=== PATIENT | female | born 1975 | race Hispanic/Latino ===

== ENCOUNTER → 2019-02-10 | Outpatient (CLI) | payer BC ==
[~2019-02-10] MED LIST: ASPI-1197 PO; CHOL500051 PO; CIPR-278 PO; METR500T PO; TRAM50TA4 PO
== END | disposition home or self-care (01) ==
LOC: RAH 13:14
PROVIDERS: ATTEND Nurse Practitioner Adult Health
DX: Z12.31 Encounter for screening mammogram for malignant neoplasm of breast (principal)
CPT/HCPCS: 77067

== ENCOUNTER 2024-12-23 15:18 | Inpatient (IN) | payer BC ==
[~2024-12-23] VITALS: Ht 162.6 cm; Wt 84.1 kg
[~2024-12-23 15:18] MED LIST changes: +ACET-2079 PO; +AMOX1TAB16 PO; -ASPI-1197 PO; +CEPH500B PO; -CHOL500051 PO; -CIPR-278 PO; +KETO10TA2 PO; +LEVO5TAB29 PO; +LOPE2CAP PO; -METR500T PO; +RIVA20TA PO; +TAMS-55 PO; -TRAM50TA4 PO
[2024-12-23 15:46] LABS: BASOPHILS # (AUTO) 0.05 K/uL (0.00-0.20); BASOPHILS % (AUTO) 0.4 % (0.0-5.0); EOSINOPHILS # (AUTO) 0.09 K/uL (0.00-0.70); EOSINOPHILS % (AUTO) 0.7 % (0.0-8.0); IMMATURE GRANULOCYTE ABSOLUTE 0.04 K/uL (0-1); LYMPHOCYTES # (AUTO) 1.6 K/uL (1.0-4.8); LYMPHOCYTES % (AUTO) 12.1 % (21.0-51.0); MEAN CORPUSCULAR HEMOGLOBIN 30.4 pg (27.0-33.0); MEAN CORPUSCULAR HGB CONC 33.2 g/dL (32.0-36.0); MEAN CORPUSCULAR VOLUME 91.4 fL (79-99); MONOCYTES # (AUTO) 0.9 K/uL (0.1-1.0); MONOCYTES % (AUTO) 6.6 % (3.0-13.0); NEUTROPHILS # (AUTO) 10.7 K/uL (1.8-7.7); NEUTROPHILS % (AUTO) 79.9 % (40.0-77.0); PLATELET COUNT (AUTO) 342 K/uL (130-400); RED BLOOD CELL COUNT(AUTO) 4.05 MIL/uL (4.00-5.50); RED CELL DISTRIBUTION WIDTH 12.9 % (11.0-15.5); WHITE BLOOD COUNT (AUTO) 13.4 K/uL (4.8-10.8)
[2024-12-23 15:57] LABS: CREATININE 0.7 mg/dL (0.5-1.0); POTASSIUM 3.9 mmol/L (3.5-5.1)
[2024-12-23 16:19] LABS: APPEARANCE,URINE CLEAR (CLEAR); BILIRUBIN,URINE NEGATIVE (NEGATIVE); COLOR,URINE LIGHT-YELLOW (YELLOW); GLUCOSE, URINE (UA) NEGATIVE (NEGATIVE); KETONES,URINE NEGATIVE (NEGATIVE); LEUKOCYTE ESTERASE ,URINE NEGATIVE Leu/uL (NEGATIVE); NITRATE,URINE NEGATIVE (NEGATIVE); OCCULT BLOOD,URINE NEGATIVE (NEGATIVE); PH,URINE 7.5 (5.0-8.0); PROTEIN,URINE NEGATIVE (NEGATIVE); UROBILINOGEN,URINE 0.2 mg/dL (0.2-1.0)
[2024-12-23 16:20] LABS: ADD UA MICROSCOPIC YES
[2024-12-23] MEDS: 0.9%NACL 1000ML 1,000 ML IV ONE (16:20)
[2024-12-23] MEDS: PANTOPrazole 40 MG/VIAL IVP ONE (16:20)
[2024-12-23 16:21] LABS: BACTERIA,URINE RARE /HPF (None Seen); MUCUS,URINE RARE LPF (None Seen); WBC,URINE 0-1 /HPF (0-1)
[2024-12-23 16:22] LABS: HCG,QUALITATIVE URINE NEGATIVE (NEGATIVE)
[2024-12-23 16:24] LABS: ALBUMIN 3.6 g/dL (3.5-5.0); BILIRUBIN,TOTAL 0.7 mg/dL (0.2-1.0); TOTAL PROTEIN, SERUM 7.8 g/dL (6.0-8.3)
--- NOTE | 2024-12-23 17:32 | ERN ---
General Chief Complaint: Abdominal Pain Stated Complaint: ABD PAIN, CRAMPING Time Seen by MD: 15:20 Source: patient History of Present Illness Initial Comments Patient is a 49-year-old female coming in to be evaluated for lower abdominal cramping. Patient states that the pain began yesterday she believes that she might have eaten something that caused this. No fever no chills she states he has been having loose stools. Allergies: Coded Allergies: No Known Allergies (Verified Allergy, Unknown, 11/13/14) Home Meds Active Scripts Cephalexin Monohydrate (Keflex) 500 Mg Cap, 1 CAP PO BID for 10 Days, #20 CAP 0 Refills Prov:JENNY MONCADA MD 09/15/24 Tamsulosin HCl (Flomax) 0.4 Mg Cap.er.24h, 1 CAP PO DAILY for 7 Days, #7 CAP 0 Refills Prov:JENNY MONCADA MD 09/15/24 Ketorolac Tromethamine (Ketorolac Tromethamine) 10 Mg Tablet, 1 TAB PO Q6HPRN PRN for pain for 5 Days, #20 TAB 0 Refills Prov:JENNY MONCADA MD 09/15/24 Loperamide HCl (Imodium 2 mg Cap) 2 Mg Capsule, 2 MG PO TID PRN for DIARRHEA for 3 Days, #15 CAP Prov:JEAN-PIERRE LLANES NP 11/04/22 Amoxicillin/Potassium Clav (Amox Tr-K Clv 875-125 mg Tab) 1 Each Tablet, 1 EACH PO BID for 14 Days, #28 TAB Prov:JEAN-PIERRE LLANES NP 11/04/22 Acetaminophen with Codeine (Acetaminophen-Cod #3 Tablet) 1 Each Tablet, 1 TAB PO Q4H PRN for MODERATE PAIN (4-6) for 7 Days, #10 TAB Prov:JEAN-PIERRE LLANES NP 11/04/22 Reported Medications Levocetirizine Dihydrochloride (Xyzal) 5 Mg Tablet, 5 MG PO HS, TAB 10/31/22 Rivaroxaban (Xarelto) 20 Mg Tablet, 20 MG PO HS, TAB 10/31/22 Past Medical History Past Medical History: Other Medical History Other: XARELTO FOR CLOTTING, BRAIN TUMOR, Past Surgical History: Surgical History Other: BRAIN TUMOR REMOVAL, HERNIA REPAIR, ROS Dictation CONSTITUTIONAL: No chills, no fever, no weakness, no diaphoresis, no malaise. HEAD/FACE: No signs of trauma. EENT: No eye pain, no blurred vision, no tearing, no double vision, no ear pain, no ear discharge, no nose pain, no nasal congestion, no throat pain, no throat swelling, no mouth pain. RESPIRATORY: No cough, no orthopnea, no SOB, no stridor, no wheezing. CARDIOVASCULAR: No chest pain, no edema, no palpitations, no syncope. GASTROINTESTINAL/ABDOMINAL: No abdominal pain, no constipation, no diarrhea, no nausea, no vomiting. GENITOURINARY: No abnormal discharge, no dysuria, no frequent urination, no hematuria. No complaints of pain in the genitals. MUSCULOSKELETAL: No back pain, no gout, no joint pain, no joint swelling, no muscle pain, no muscle stiffness, no neck pain. INTEGUMENTARY: No change in color, no change in hair/nails, no dryness, no lesion, no lumps, no rash. NEUROLOGICAL/PSYCH: No anxiety, not depressed, no emotional problem, no headache, no numbness, no pre-existing deficit, no history of seizures, no tremors, no weakness. HEMATOLOGIC/LYMPHATIC: Not anemic, no history of blood clots, no apparent bleeding, no bruising, glands not swollen. All Systems Negative, Except as Noted. Physical Exam Physical Exam Dictation VITAL SIGNS: Reviewed. GENERAL APPEARANCE: Alert, oriented x3, no acute distress, obese. HEAD AND FACE: Non-traumatic. EYES: PERRL, pink conjunctivas, eyelid no trauma, anterior chamber clear. EARS: Pinnas intact and no signs of trauma or erythema. Ear canals clear and no discharge. TMs no erythema. NOSE: No discharge, no bleeding. OROPHARYNX: Mouth normal, teeth no caries, tongue pink. Pharynx clear, no erythema. Tonsils no exudates, no abscesses noted. Mucous membrane moist. NECK: Supple, non-tender, no thyromegaly, no masses, no JVD, no bruits. BREAST: Deferred. CHEST: No tenderness, no crepitus, no paradoxical movement, no retractions. LUNGS: Clear, well-ventilated, symmetric, no rales, no wheezing, no rhonchi, no stridor, good breath sounds bilaterally. HEART: Regular rate, regular rhythm, no murmur, no gallops. VASCULAR: No peripheral edema. ABDOMEN: Soft, positive bowel sounds, nondistended, no guarding, nontender, no rebound, no masses no hepatomegaly, no splenomegaly, no Wynn's sign, no hernias. RECTAL: Deferred. GENITAL: Deferred. NEUROLOGICAL: Normal speech, gross motor function intact, gross sensory function intact. MUSCULOSKELETAL: Neck nontender, full range of motion, back nontender, full range of motion. EXTREMITIES: Nontender, full range of motion. SKIN: Color pink, dry, no turgor, no rash, no lacerations, no abrasions, no contusions. LYMPHATICS: Deferred. Results Laboratory and Microbiology Lab and Micro Result Laboratory Tests Test 12/23/24 15:39 12/23/24 15:58 White Blood Count 13.4 K/uL (4.8-10.8) H Red Blood Count 4.05 MIL/uL (4.00-5.50) Hemoglobin 12.3 g/dL (12.0-16.0) Hematocrit 37.0 % (36-48) Mean Corpuscular Volume 91.4 fL (79-99) Mean Corpuscular Hemoglobin 30.4 pg (27.0-33.0) Mean Corpuscular Hemoglobin Concent 33.2 g/dL (32.0-36.0) Red Cell Distribution Width 12.9 % (11.0-15.5) Platelet Count 342 K/uL (130-400) Mean Platelet Volume 9.2 fL (7.5-10.5) Immature Granulocyte % (Auto) 0.3 % (0-1) Neutrophils (%) (Auto) 79.9 % (40.0-77.0) H Lymphocytes (%) (Auto) 12.1 % (21.0-51.0) L Monocytes (%) (Auto) 6.6 % (3.0-13.0) Eosinophils (%) (Auto) 0.7 % (0.0-8.0) Basophils (%) (Auto) 0.4 % (0.0-5.0) Neutrophils # (Auto) 10.7 K/uL (1.8-7.7) H Lymphocytes # (Auto) 1.6 K/uL (1.0-4.8) Monocytes # (Auto) 0.9 K/uL (0.1-1.0) Eosinophils # (Auto) 0.09 K/uL (0.00-0.70) Basophils # (Auto) 0.05 K/uL (0.00-0.20) Absolute Immature Granulocyte (auto 0.04 K/uL (0-1) Nucleated Red Blood Cells 0.0 % (0.0-0.19) Sodium Level 138 mmol/L (136-145) Potassium Level 3.9 mmol/L (3.5-5.1) Chloride Level 103 mmol/L (101-111) Carbon Dioxide Level 28 mmol/L (21-32) Blood Urea Nitrogen 14 mg/dL (7-18) Creatinine 0.7 mg/dL (0.5-1.0) Glomerular Filtration Rate Calc 105 mL/min (>90) Random Glucose 97 mg/dL (70-105) Total Calcium 9.2 mg/dL (8.5-10.1) Total Bilirubin 0.7 mg/dL (0.2-1.0) Aspartate Amino Transf (AST/SGOT) 26 U/L (10-37) Alanine Aminotransferase (ALT/SGPT) 47 U/L (12-78) Alkaline Phosphatase 118 U/L (50-136) Total Protein 7.8 g/dL (6.0-8.3) Albumin 3.6 g/dL (3.5-5.0) Lipase 24 U/L (16-77) Urine Color LIGHT-YELLOW (YELLOW) Urine Appearance CLEAR (CLEAR) Urine pH 7.5 (5.0-8.0) Urine Specific [place] 1.012 (1.001-1.031) Urine Protein NEGATIVE mg/dL (NEGATIVE) Urine Glucose (UA) NEGATIVE mg/dL (NEGATIVE) Urine Ketones NEGATIVE mg/dL (NEGATIVE) Urine Occult Blood NEGATIVE (NEGATIVE) Urine Nitrate NEGATIVE (NEGATIVE) Urine Bilirubin NEGATIVE mg/dL (NEGATIVE) Urine Urobilinogen 0.2 mg/dL (0.2-1.0) Urine Leukocyte Esterase NEGATIVE Saqib/uL Urine RBC 2-5 /HPF (0-1) H Urine WBC 0-1 /HPF (0-1) Urine Bacteria RARE /HPF (None Seen) Urine HCG, Qualitative NEGATIVE (NEGATIVE) EKG/XRAY/US/CT/MRI CT Scan Comment [facility] [address] [place] [address] IMAGING REPORT Signed PATIENT: CELI RINALDI MR#: [id number] : 1975 SEX: F AGE: 49 LOCATION: [facility] ORDER 52 STATUS: [facility] ER REPORT#: [id number] SERVICE 51 REASON: llq pain ORDERING PHYSICIAN: JENNY MONCADA MD PROCEDURE: ABD PEL W - CT ABDOMEN/PELVIS W/CONTRAST CT ABDOMEN/PELVIS W/CONTRAST CLINICAL HISTORY: llq pain COMPARISON: 11/02/2022 TECHNIQUE: Sequential axial images of abdomen and pelvis with 75 mL of Omnipaque 350 IV contrast with sagittal and coronal reconstructions. CT was performed with one or more of the following dose reduction techniques: automated exposure control, adjustment of the mA and/or kV according to patient size, or use of iterative reconstruction technique. FINDINGS: Lung bases clear. Liver and spleen are unremarkable. The gallbladder pancreas and adrenal glands left kidney and bladder are unremarkable. There is punctate nonobstructive renal calculi. The right ureter is within normal limits. Note is made of extensive inflammatory change in the pelvis around the sigmoid colon as well as multiple sigmoid colon diverticuli and small amount of free fluid sitting dependently in the pelvis. There is no identified bowel obstruction. There is no bulky abdominal or retroperitoneal lymphadenopathy. The bony structures demonstrate mild change of the spine. The ureters is unremarkable. IMPRESSION: Severe sigmoid diverticulitis. Multiple nonobstructive right renal calculus DICTATED BY: RON AVITIA DO DATE: 12/23/241817 ELECTRONICALLY SIGNED BY: RON AVITIA DO DATE: 12/23/24 182 [facility] MDM: Differential diagnosis: Severe diverticulitis, Rationale: Tests considered and ordered secondary to shared decision making include: labs, ECG and radiology Previous outside records reviewed: Old ER visits. Risk of complication and/or morbidity or mortality of patient management: None Medications-Per medication reconciliation Need for hospitalization: Patient does meet criteria for hospitalization. Need for emergency major/minor surgery: No There are no social concerns with this patient. Prescription drug management Prescriptions will include symptomatic care Patient's prior external medical records from other ER visits were reviewed by me as indicated. Prior testing and results from previous visits were reviewed. Prior tests were taken into account with medical decision making and resource utilization, independent historian/historians were used to obtain complete medical history. I independently interpreted the test that were performed, results were reviewed by me and considered findings on radiology if ordered. Medical management and examination interpretation discussions were had by me with other qualified healthcare professionals as indicated for the patient's care. ED Course Orders Procedure Category Date Status Time Cbc With Differential LAB 12/23/24 Complete 15:28 Comprehensive LAB 12/23/24 Complete Metabolic Panel 15: ,Urine Test LAB 12/23/24 Complete 15:28 Urinalysis Profile LAB 12/23/24 Complete 15:28 Lipase LAB 12/23/24 Complete 15:28 0.9%Nacl 1000ml (Ns PHA 12/23/24 Complete 1000ml) 15:30 Pantoprazole 40mg Inj PHA 12/23/24 Complete (Protonix 40mg Inj 15:30 Ct Abdomen/Pelvis CT 12/23/24 Resulted W/Contrast 16:52 Iohexol (Omnipaque) PHA 12/23/24 Complete 17:34 Zosyn 3.375gm+Ns 50ml PHA 12/23/24 Complete (Zosyn 3.375gm+Ns 19:00 Morphine 2mg Syg PHA 12/23/24 Complete (Morphine 2mg Syg) 19:00 Ondansetron 4mg Inj PHA 12/23/24 Complete (Zofran 4mg Inj) 19:00 Morphine 2mg Syg PHA 12/23/24 Complete (Morphine 2mg Syg) 19:00 Current Medications Medications (Trade) Dose Ordered Sig/Percy Route PRN Reason Start Time Stop Time Status Last Admin Dose Admin Iohexol (Omnipaque) 35,000 mg STK-MED ONCE IV 12/23/24 17:34 12/23/24 17:34 DC Morphine Sulfate (morPHINE 2MG SYG) 2 mg ONCE ONCE IVP 12/23/24 19:00 12/23/24 18:59 DC Morphine Sulfate (morPHINE 2MG SYG) 2 mg ONCE ONCE IVP 12/23/24 19:00 12/23/24 19:01 DC 12/23/24 18:57 Ondansetron HCl (zoFRAN 4MG INJ) 4 mg ONCE ONCE IVP 12/23/24 19:00 12/23/24 19:01 DC 12/23/24 18:57 Pantoprazole Sodium (PROTonix 40MG INJ) 40 mg ONCE ONCE IVP 12/23/24 15:30 12/23/24 15:34 DC 12/23/24 16:20 Piperacillin Sod/ Tazobactam Sod (Zosyn 3.375gm+NS 50ml) 3.375 gm ONCE ONCE IVPB 12/23/24 19:00 12/23/24 19:01 DC 12/23/24 18:57 Sodium Chloride 1,000 ml @ 0 mls/hr ONCE ONCE IV 12/23/24 15:30 12/23/24 15:34 DC 12/23/24 16:20 Vital Signs Date Time Temp Pulse Resp B/P (MAP) Pulse Ox O2 Delivery O2 Flow Rate FiO2 12/23/24 19:13 98.2 98 16 145/78 98 Room Air* 0 21 12/23/24 16:25 98.2 95 16 110/75 98 Room Air* 0 21 12/23/24 15:23 98.2 97 18 111/77 97 Room Air 0 1935/SPOKE WITH HOLDEN DICKINSON HOSPITALIST REVIEWED LABS CT SCAN AND INTERVENTIONS FOR DIVERTICULITIS TO INCLUDE ZOSYN AND FLUIDS AND PAIN MANAGEMENT SHE AGREED TO ADMIT PATIENT. DX & DISP Disposition: Inpatient Decision to Admit Time: 19:36 Departure Impression: Primary Impression: Diverticulitis of sigmoid colon Condition: Stable Referrals: KRYSTAL MUNOZ NP (PCP) Time of Disposition: 19:37 I have reviewed the case, and I agree with, Diagnosis and Plan JENNY MONCADA MD December 23, 2024 17:32 ODILON BUTTERFIELD NP December 23, 2024 19:37
[2024-12-23] MEDS ORDERED: IOHEXOL 350 MG/ML 100ML INFUS..BTL IV ONE (17:34)
--- NOTE | 2024-12-23 18:23 | HMCIMG ---
CT ABDOMEN/PELVIS W/CONTRAST CLINICAL HISTORY: llq pain COMPARISON: 11/02/2022 TECHNIQUE: Sequential axial images of abdomen and pelvis with 75 mL of Omnipaque 350 IV contrast with sagittal and coronal reconstructions. CT was performed with one or more of the following dose reduction techniques: automated exposure control, adjustment of the mA and/or kV according to patient size, or use of iterative reconstruction technique. FINDINGS: Lung bases clear. Liver and spleen are unremarkable. The gallbladder pancreas and adrenal glands left kidney and bladder are unremarkable. There is punctate nonobstructive renal calculi. The right ureter is within normal limits. Note is made of extensive inflammatory change in the pelvis around the sigmoid colon as well as multiple sigmoid colon diverticuli and small amount of free fluid sitting dependently in the pelvis. There is no identified bowel obstruction. There is no bulky abdominal or retroperitoneal lymphadenopathy. The bony structures demonstrate mild change of the spine. The ureters is unremarkable. IMPRESSION: Severe sigmoid diverticulitis. Multiple nonobstructive right renal calculus
[2024-12-23] MEDS: morPHINE 2 MG SYG IVP ONE (18:57)
[2024-12-23] MEDS: ZOSYN 3.375GM +NS 50ML IVPB ONE (18:57)
[2024-12-23] MEDS: ondanSETRON 4MG INJ IVP ONE (18:57)
[2024-12-23] MEDS ORDERED: morPHINE 2 MG SYG IVP ONE (19:00)
--- NOTE | 2024-12-23 19:24 | NUR ---
PT CARE ASSUMED AT THIS TIME
--- NOTE | 2024-12-23 19:39 | HP ---
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 Seen and examined patient in the ER awake,alert and coherent,appears uncomfortable patient reports 8/10 pain level.Patient denies fev er,chills,vomiting ,diarrhea,chest pain,palpitation and shortness of breath.Abdominal tenderness is mostly on the left lower quadrant area but it hurta all over her abdomen as well she said. Vitals signs temperature 98.2, heart rate 98, blood pressure 145/78 saturation at 8% on room air. Labs: WBC 13 with negative left shift of neutrophils 79 the rest of the CBC result is unremarkable. Chemistries normal. Urinalysis is normal. CT abdomen and pelvis with contrast result revealed severe sigmoid diverticulitis. Multiple nonobstructive right renal calculus. While in the ER patient received 1 L NS bolus, Protonix 40 mg IV IV, morphine 2 mg IV, Zofran 4 mg IV. We will admit patient for further medical management. REVIEW OF SYSTEMS CONSTITUTIONAL: Denies fevers, chills, or night sweats. No unintentional weight loss reported. NEUROLOGICAL: Denies headache, amaurosis fugax, motor weakness, sensory deficit, vertigo/spinning sensation, gait abnormalities, or tremors. ENT: No hearing loss, otalgia, otorrhea, rhinitis, rhinorrhea, hoarseness, or sore throat. CARDIOVASCULAR: Denies any exertional angina, dyspnea on exertion, orthopnea, paroxysmal nocturnal dyspnea, palpitations, life-threatening arrhythmias, claudication. PULMONARY: Denies any shortness of breath, cough, phlegm/sputum, hemoptysis, pleuritic chest pain. SLEEP: Denies morning headaches, daytime somnolence or napping. Denies difficulty falling asleep, staying asleep, waking from sleep. Denies knowledge of snoring. GASTROINTESTINAL: Complaints of abdominal pain and nausea Denies any type of dysphagia to either liquids or solids. Denies vomiting, pyrosis, early satiety, diarrhea, constipation, or changes in stool consistency or caliber. Denies coffee-ground emesis, hematemesis, hematochezia, or melanotic stools. GENITOURINARY: Denies frequency, urgency, nocturia, hematuria or incontinence (Storage/Irritative symptoms.) Low urinary stream, straining to void, urinary intermittency or hesitancy, splitting of the voiding stream, terminal dribbling. ENDOCRINOLOGIC: Denies polyuria, polydipsia, polyphagia or heat/cold intolerances. HEMATOLOGIC: Denies thrombophilia/previous clots, or coagulopathy/bleeding disorders. ONCOLOGIC: Denies personal history of malignancy. DERMATOLOGIC: Denies rashes or pruritus. PSYCHIATRIC: Denies any suicidal or homicidal ideation. Denies hallucinations. 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 Patient denies alcohol tobacco and recreational drug use ] FAMILY HISTORY: [ Hypertension and diabetes ] Coded Allergies: No Known Allergies (Verified Allergy, Unknown, 11/13/14) PHYSICAL EXAM GENERAL APPEARANCE: The patient is awake, alert, and oriented, in no acute cardiopulmonary distress. NEUROLOGICAL: Cranial nerves II-XII grossly intact. Motor is 5/5 in bilateral upper and lower extremities proximal to distal. No sensory deficits. HEENT: Face is symmetric. Pupils are equal and reactive. Extraocular movements are intact. NECK: Supple. No JVD. No thyromegaly. No submental, submandibular, pre- /postauricular, occipital or supraclavicular lymphadenopathy. CHEST: Normal chest expansion. No Telemetry. LUNGS: Absence of any rales, rhonchi or any wheezing. CARDIOVASCULAR: Regular. S1 and S2 normal. No appreciable rubs, murmurs or gallops. ABDOMEN: Abdominal tenderness x4 quadrants on palpation. Positive rebound tenderness on left lower quadrant on light palpation Soft and nondistended. There is novoluntary guarding, or rigidity. : Deferred. No Jj. EXTREMITIES: Non-edematous and not cyanotic. No clubbing. Good capillary refill. SKIN: No skin breakdown. Vital Sign (Last 24 Hours) 12/23/24 19:13 Temp 98.2 Pulse 98 Resp 16 B/P (MAP) 145/78 Pulse Ox 98 O2 Delivery Room Air* O2 Flow Rate 0 FiO2 21 LABS: Laboratory: Test 12/23/24 15:58 12/23/24 15:39 Range/Units Urine Color LIGHT-YELLOW YELLOW Urine Appearance CLEAR CLEAR Urine pH 7.5 5.0-8.0 Urine Specific [place] 1.012 1.001-1.031 Urine Protein NEGATIVE NEGATIVE mg/dL Urine Glucose (UA) NEGATIVE NEGATIVE mg/dL Urine Ketones NEGATIVE NEGATIVE mg/dL Urine Occult Blood NEGATIVE NEGATIVE Urine Nitrate NEGATIVE NEGATIVE Urine Bilirubin NEGATIVE NEGATIVE mg/dL Urine Urobilinogen 0.2 0.2-1.0 mg/dL Urine Leukocyte Esterase NEGATIVE NEGATIVE Saqib/uL Urine RBC 2-5 H 0-1 /HPF Urine WBC 0-1 0-1 /HPF Urine Bacteria RARE None Seen /HPF Urine HCG, Qualitative NEGATIVE NEGATIVE White Blood Count 13.4 H 4.8-10.8 K/uL Red Blood Count 4.05 4.00-5.50 MIL/uL Hemoglobin 12.3 12.0-16.0 g/dL Hematocrit 37.0 36-48 % Mean Corpuscular Volume 91.4 79-99 fL Mean Corpuscular Hemoglobin 30.4 27.0-33.0 pg Mean Corpuscular Hemoglobin Concent 33.2 32.0-36.0 g/dL Red Cell Distribution Width 12.9 11.0-15.5 % Platelet Count 342 130-400 K/uL Mean Platelet Volume 9.2 7.5-10.5 fL Immature Granulocyte % (Auto) 0.3 0-1 % Neutrophils (%) (Auto) 79.9 H 40.0-77.0 % Lymphocytes (%) (Auto) 12.1 L 21.0-51.0 % Monocytes (%) (Auto) 6.6 3.0-13.0 % Eosinophils (%) (Auto) 0.7 0.0-8.0 % Basophils (%) (Auto) 0.4 0.0-5.0 % Neutrophils # (Auto) 10.7 H 1.8-7.7 K/uL Lymphocytes # (Auto) 1.6 1.0-4.8 K/uL Monocytes # (Auto) 0.9 0.1-1.0 K/uL Eosinophils # (Auto) 0.09 0.00-0.70 K/uL Basophils # (Auto) 0.05 0.00-0.20 K/uL Absolute Immature Granulocyte (auto 0.04 0-1 K/uL Nucleated Red Blood Cells 0.0 0.0-0.19 % Sodium Level 138 136-145 mmol/L Potassium Level 3.9 3.5-5.1 mmol/L Chloride Level 103 101-111 mmol/L Carbon Dioxide Level 28 21-32 mmol/L Blood Urea Nitrogen 14 7-18 mg/dL Creatinine 0.7 0.5-1.0 mg/dL Glomerular Filtration Rate Calc 105 >90 mL/min Random Glucose 97 70-105 mg/dL Total Calcium 9.2 8.5-10.1 mg/dL Total Bilirubin 0.7 0.2-1.0 mg/dL Aspartate Amino Transf (AST/SGOT) 26 10-37 U/L Alanine Aminotransferase (ALT/SGPT) 47 12-78 U/L Alkaline Phosphatase 118 50-136 U/L Total Protein 7.8 6.0-8.3 g/dL Albumin 3.6 3.5-5.0 g/dL Lipase 24 16-77 U/L DIAGNOSTICS / RADIOLOGY: [ ] ASSESSMENT: Severe sigmoid diverticulitis POA Left leg DVT on Xarelto POA History of diverticulitis POA Pulmonary embolism on Xarelto POA History of vein to morbid surgery POA PLAN: We will admit patient in medical surgical We will keep patient nothing by mouth We will start NS @ 100 ml / hr and re evaluate We will start patient on Zosyn IV for empiric coverage We will start on Famotidine 20 mg IV bid for GI prophylaxis We will replace electrolytes as needed per protocol We will add prn medication for fever,pain,cough, nausea and vomiting We will reconcile home meds once medlist available We will seek general surgery consultation We will request labs in am Further orders to follow depending on above results Case discussed with attending physician and came up with above treatment and plan of care. ADVANCED CARE PLANNING 1. Which of the following were discussed? Hospice Care - No Therapeutic options - Yes Advance Directives - No Other discussions - 2. Discussed with who? Patient 3. Voluntary nature of this service was explained to the patient? Yes 4. Amount of time spent - ___22____ 5. Reviewed by Physician? (if this service was performed by NPP) Yes Patient seen and examined by me. Agree with note by STEAM DRIER OPERATOR SEE ADDITIONAL ORDERS PER CHART DISCUSSED WITH NURSING STAFF TAMAR SEXTON [employer] LEAD December 23, 2024 19:39
[2024-12-23] MEDS ORDERED: ondanSETRON 4MG INJ IV PRN (20:00)
[2024-12-23] MEDS: 0.9%NACL 1000ML 1,000 ML IV SCH (20:09)
[2024-12-23] MEDS: FAMOTIDINE 20MG VIAL IV SCH (21:30)
--- NOTE | 2024-12-23 21:31 | NUR ---
ATTEMPT TO GIVE REPORT AT THIS TIME. NOT SUCCESSFUL.
--- NOTE | 2024-12-23 21:59 | NUR ---
REPORT GIVEN TO NURSE PROCTOR AT THIS TIME
[2024-12-23 22:15] VITALS: BP 126/74; PULSE 83; RESP 20; TEMP 97.8
[2024-12-23] MEDS: morPHINE 2 MG SYG IV PRN (22:28)
[2024-12-24] MEDS ORDERED: PSYLLIUM HUSK PO (00:26)
[2024-12-24] MEDS ORDERED: CETI10TA57 PO (00:26)
[2024-12-24] MEDS ORDERED: TOPI-97 PO (00:26)
[2024-12-24] MEDS ORDERED: PSYLLIUM SEED 1 EACH PACKET PO PRN (01:30)
[2024-12-24] MEDS ORDERED: PSYLLIUM SEED 1 EACH PACKET PO SCH (01:30)
[2024-12-24] MEDS: ZOSYN 3.375GM+NS 50ML 50 ML IV SCH (03:47)
[2024-12-24 04:00] VITALS: BP 112/66; PULSE 80; RESP 20; TEMP 98.3
[2024-12-24 06:20] LABS: BASOPHILS # (AUTO) 0.04 K/uL (0.00-0.20); BASOPHILS % (AUTO) 0.5 % (0.0-5.0); EOSINOPHILS # (AUTO) 0.16 K/uL (0.00-0.70); EOSINOPHILS % (AUTO) 1.8 % (0.0-8.0); HEMATOCRIT 32.9 % (36-48); IMMATURE GRANULOCYTE ABSOLUTE 0.03 K/uL (0-1); LYMPHOCYTES # (AUTO) 1.5 K/uL (1.0-4.8); MEAN CORPUSCULAR HEMOGLOBIN 30.2 pg (27.0-33.0); MEAN CORPUSCULAR HGB CONC 32.5 g/dL (32.0-36.0); MEAN CORPUSCULAR VOLUME 92.9 fL (79-99); MONOCYTES # (AUTO) 0.7 K/uL (0.1-1.0); MONOCYTES % (AUTO) 7.8 % (3.0-13.0); NEUTROPHILS # (AUTO) 6.4 K/uL (1.8-7.7); NEUTROPHILS % (AUTO) 72.6 % (40.0-77.0); PLATELET COUNT (AUTO) 306 K/uL (130-400); RED BLOOD CELL COUNT(AUTO) 3.54 MIL/uL (4.00-5.50); RED CELL DISTRIBUTION WIDTH 12.9 % (11.0-15.5); WHITE BLOOD COUNT (AUTO) 8.8 K/uL (4.8-10.8)
[2024-12-24 06:42] LABS: ALBUMIN 2.8 g/dL (3.5-5.0); BILIRUBIN,TOTAL 0.6 mg/dL (0.2-1.0); CREATININE 0.8 mg/dL (0.5-1.0); POTASSIUM 3.6 mmol/L (3.5-5.1); TOTAL PROTEIN, SERUM 6.6 g/dL (6.0-8.3)
[2024-12-24 06:47] LABS: INR 1.01 (0.85-1.15); PROTHROMBIN TIME 10.7 SEC (9.6-11.6)
[2024-12-24 06:49] LABS: PARTIAL THROMBOPLASTIN TIME 29.5 SEC (26.3-35.5)
[2024-12-24 08:04] VITALS: BP 123/69; PULSE 81; RESP 18; TEMP 98
[2024-12-24 08:27] VITALS: O2SAT 94
[2024-12-24] MEDS: PoTASSium chloRIDE 20MEQ/100ML 100 ML IV PRN (08:27)
--- NOTE | 2024-12-24 09:01 | PN ---
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 She foods eating2 slices of pizza the previous night and had a large bowel movement the following morning. Soon after she developed abdominal cramping and pain which was accompanied by nausea that has progressively worsened. Vitals signs temperature 98.2, heart rate 98, blood pressure 145/78 saturation at 8% on room air. Labs: WBC 13 with negative left shift of neutrophils 79 the rest of the CBC result is unremarkable. Urinalysis is normal. CT abdomen and pelvis with contrast result revealed severe sigmoid diverticulitis. Multiple nonobstructive right renal calculus. Admitted for further assessment and treatment. 12/24/2024 Patient is seen and examined at the bedside. She states that her abdominal pain has significantly improved and currently rates the pain at 6/10 localized to left side. She denies fever, chills, shortness of breath, nausea, vomiting, chest pain, palpitations, diarrhea. Vitals blood pressure 123/69, temperature 98.1, pulse rate 81, respiratory rate 18. WBC improved from 13.4- 8.8, hemoglobin decreased from 12.3-10.7, PT INR normal, BMP unremarkable. Currently NPO. Pending surgery consult REVIEW OF SYSTEMS CONSTITUTIONAL: Denies fevers, chills, or night sweats. No unintentional weight loss reported. NEUROLOGICAL: Denies headache, amaurosis fugax, motor weakness, sensory deficit, vertigo/spinning sensation, gait abnormalities, or tremors. ENT: No hearing loss, otalgia, otorrhea, rhinitis, rhinorrhea, hoarseness, or sore throat. CARDIOVASCULAR: Denies any exertional angina, dyspnea on exertion, orthopnea, paroxysmal nocturnal dyspnea, palpitations, life-threatening arrhythmias, claudication. PULMONARY: Denies any shortness of breath, cough, phlegm/sputum, hemoptysis, pleuritic chest pain. SLEEP: Denies morning headaches, daytime somnolence or napping. Denies difficulty falling asleep, staying asleep, waking from sleep. Denies knowledge of snoring. GASTROINTESTINAL: Complaints of moderate abdominal pain Denies any type of dy sphagia to either liquids or solids. Denies vomiting, pyrosis, early satiety, diarrhea, constipation, or changes in stool consistency or caliber. Denies coffee-ground emesis, hematemesis, hematochezia, or melanotic stools. GENITOURINARY: Denies frequency, urgency, nocturia, hematuria or incontinence (Storage/Irritative symptoms.) Low urinary stream, straining to void, urinary intermittency or hesitancy, splitting of the voiding stream, terminal dribbling. ENDOCRINOLOGIC: Denies polyuria, polydipsia, polyphagia or heat/cold intolerances. HEMATOLOGIC: Denies thrombophilia/previous clots, or coagulopathy/bleeding disorders. ONCOLOGIC: Denies personal history of malignancy. DERMATOLOGIC: Denies rashes or pruritus. PSYCHIATRIC: Denies any suicidal or homicidal ideation. Denies hallucinations. PHYSICAL EXAM GENERAL APPEARANCE: The patient is awake, alert, and oriented, in no acute cardiopulmonary distress. NEUROLOGICAL: Cranial nerves II-XII grossly intact. Motor is 5/5 in bilateral upper and lower extremities proximal to distal. No sensory deficits. HEENT: Face is symmetric. Pupils are equal and reactive. Extraocular movements are intact. NECK: Supple. No JVD. No thyromegaly. No submental, submandibular, pre- /postauricular, occipital or supraclavicular lymphadenopathy. CHEST: Normal chest expansion. No Telemetry. LUNGS: Absence of any rales, rhonchi or any wheezing. CARDIOVASCULAR: Regular. S1 and S2 normal. No appreciable rubs, murmurs or gallops. ABDOMEN: Abdominal tenderness on palpation over left lower quadrant. Soft and nondistended. There is novoluntary guarding, or rigidity. : Deferred. No Jj. EXTREMITIES: Non-edematous and not cyanotic. No clubbing. Good capillary refill. SKIN: No skin breakdown. Vital Signs (last 8hr) Date Time Temp Pulse Resp B/P (MAP) Pulse Ox O2 Delivery O2 Flow Rate FiO2 12/24/24 08:04 98.1 81 18 123/69 94 Room Air 12/24/24 04:00 98.2 80 20 112/66 98 Room Air 12/24/24 03:47 Room Air* 0 21 LABS: Laboratory: Test 12/24/24 06:08 12/23/24 15:58 12/23/24 15:39 Range/Units White Blood Count 8.8 # 4.8-10.8 K/uL Red Blood Count 3.54 L 4.00-5.50 MIL/uL Hemoglobin 10.7 L 12.0-16.0 g/dL Hematocrit 32.9 L 36-48 % Mean Corpuscular Volume 92.9 79-99 fL Mean Corpuscular Hemoglobin 30.2 27.0-33.0 pg Mean Corpuscular Hemoglobin Concent 32.5 32.0-36.0 g/dL Red Cell Distribution Width 12.9 11.0-15.5 % Platelet Count 306 130-400 K/uL Mean Platelet Volume 9.4 7.5-10.5 fL Immature Granulocyte % (Auto) 0.3 0-1 % Neutrophils (%) (Auto) 72.6 40.0-77.0 % Lymphocytes (%) (Auto) 17.0 L 21.0-51.0 % Monocytes (%) (Auto) 7.8 3.0-13.0 % Eosinophils (%) (Auto) 1.8 0.0-8.0 % Basophils (%) (Auto) 0.5 0.0-5.0 % Neutrophils # (Auto) 6.4 1.8-7.7 K/uL Lymphocytes # (Auto) 1.5 1.0-4.8 K/uL Monocytes # (Auto) 0.7 0.1-1.0 K/uL Eosinophils # (Auto) 0.16 0.00-0.70 K/uL Basophils # (Auto) 0.04 0.00-0.20 K/uL Absolute Immature Granulocyte (auto 0.03 0-1 K/uL Nucleated Red Blood Cells 0.0 0.0-0.19 % Prothrombin Time 10.7 9.6-11.6 SEC Prothromb Time International Ratio 1.01 0.85-1.15 Activated Partial Thromboplast Time 29.5 26.3-35.5 SEC Sodium Level 141 136-145 mmol/L Potassium Level 3.6 3.5-5.1 mmol/L Chloride Level 107 101-111 mmol/L Carbon Dioxide Level 28 21-32 mmol/L Blood Urea Nitrogen 11 7-18 mg/dL Creatinine 0.8 0.5-1.0 mg/dL Glomerular Filtration Rate Calc 89 >90 mL/min Random Glucose 82 70-105 mg/dL Total Calcium 8.5 8.5-10.1 mg/dL Magnesium Level 2.00 1.80-2.40 mg/dL Total Bilirubin 0.6 0.2-1.0 mg/dL Aspartate Amino Transf (AST/SGOT) 20 10-37 U/L Alanine Aminotransferase (ALT/SGPT) 37 # 12-78 U/L Alkaline Phosphatase 97 50-136 U/L Total Protein 6.6 6.0-8.3 g/dL Albumin 2.8 #L 3.5-5.0 g/dL Urine Color LIGHT-YELLOW YELLOW Urine Appearance CLEAR CLEAR Urine pH 7.5 5.0-8.0 Urine Specific [place] 1.012 1.001-1.031 Urine Protein NEGATIVE NEGATIVE mg/dL Urine Glucose (UA) NEGATIVE NEGATIVE mg/dL Urine Ketones NEGATIVE NEGATIVE mg/dL Urine Occult Blood NEGATIVE NEGATIVE Urine Nitrate NEGATIVE NEGATIVE Urine Bilirubin NEGATIVE NEGATIVE mg/dL Urine Urobilinogen 0.2 0.2-1.0 mg/dL Urine Leukocyte Esterase NEGATIVE NEGATIVE Saqib/uL Urine RBC 2-5 H 0-1 /HPF Urine WBC 0-1 0-1 /HPF Urine Bacteria RARE None Seen /HPF Urine HCG, Qualitative NEGATIVE NEGATIVE Lipase 24 16-77 U/L Current Medications Medications (Trade) Dose Ordered Sig/Percy Route PRN Reason Start Time Stop Time Status Last Admin Dose Admin Cetirizine HCl (ZYRtec 5 MG TABLET) 10 mg HS PO 12/24/24 21:00 01/23/25 20:59 Famotidine (Pepcid 20mg Vial) 20 mg BID IV 12/23/24 21:00 01/22/25 20:59 12/24/24 08:27 20 MG Magnesium Sulfate 50 ml @ 0 mls/hr PROTOCOL PRN IV OTHER [SEE ORDER COMMENTS] 12/23/24 20:00 01/22/25 19:59 Morphine Sulfate (morPHINE 2MG SYG) 2 mg Q4H PRN IV MODERATE PAIN (4-6) 12/23/24 20:00 12/30/24 19:59 12/24/24 08:40 2 MG Ondansetron HCl (zoFRAN 4MG INJ) 4 mg Q6H PRN IV NAUSEA/VOMITING 12/23/24 20:00 01/22/25 19:59 Piperacillin Sod/ Tazobactam Sod 50 ml @ 12.5 mls/hr Q8H IV 12/24/24 03:00 01/03/25 02:59 12/24/24 03:47 12.5 MLS/HR Potassium Chloride 100 ml @ 50 mls/hr AD PRN IV POTASSIUM PROTOCOL 12/23/24 20:00 01/22/25 19:59 12/24/24 08:27 50 MLS/HR Psyllium Hydrophilic Mucilloid (Metamucil) 1 tbs HSPRN PO 12/24/24 01:30 12/24/24 01:02 DC Psyllium Hydrophilic Mucilloid (Metamucil) 1 tbs HSPRN PRN PO CONSTIPATION 12/24/24 01:30 01/23/25 01:29 Rivaroxaban (Xarelto) 20 mg HS PO 12/24/24 21:00 01/23/25 20:59 Sodium Chloride 1,000 ml @ 100 mls/hr Q10H IV 12/23/24 20:00 01/22/25 19:59 12/23/24 20:09 100 MLS/HR Topiramate (TopaMAX) 50 mg HS PO 12/24/24 21:00 01/23/25 20:59 DIAGNOSTICS / RADIOLOGY: [ ] ASSESSMENT: Severe sigmoid diverticulitis POA Leukocytosis, POA improving Left leg DVT on Xarelto POA History of diverticulitis POA Acute on chronic anemia POA Pulmonary embolism on Xarelto POA Morbid obesity POA PLAN: NPO Severe sigmoid diverticulitis POA Continue NS @ 100 ml / hr and re evaluate Continue Zosyn IV for empiric coverage Continue p.r.n. medications for pain Avoid NSAIDs Appreciate surgery consult on we will follow their recommendations Monitor for symptoms like hemodynamic instability, altered mental status, persistent or increasing abdominal pain Left leg DVT on Xarelto POA, Pulmonary embolism on Xarelto POA We will coordinate with surgery on continuing on Xarelto in case any procedures will be planned Acute on chronic anemia POA Hemoglobin currently at 10.7 Monitor H&H we will order iron panel Continue Famotidine 20 mg IV bid for GI prophylaxis Continue SCDs for DVT prophylaxis Monitor electrolytes and replace them as needed per protocol Continue prn medication for fever,pain,cough, nausea and vomiting Medications are reconciled Follow up on General surgery consult recommendation Repeat labs in a.m. ATTESTATION BY PHYSICIAN I have seen and examined the patient. I reviewed the documentation, medical decision making, and treatment plan as noted by the resident above. I agree with the findings and plan of care. Dong Braswell MD, PRIYANKA MD Dec 24, 2024 09:01
[2024-12-24 12:16] VITALS: BP 102/55; PULSE 59; RESP 18; TEMP 98.1
--- NOTE | 2024-12-24 16:22 | CONS ---
GENERAL SURGERY CONSULTATION NOTE Date/Time Patient Seen: [ ] Requesting Physician: [ ] Reason for Consultation: [ ] History of Present Illness: 49-year-old female with a history that she has had diverticulitis in the past. But never had a colonoscopy after that. And it has never had colonoscopies. She is reports she started with two days of abdominal pain that was left lower quadrant and then radiated to the left lower quadrant. Reports nausea but no vomiting. No fevers or chills. At this point reports pain is better than when she was admitted. Past Medical History: History of meningioma that had surgery 11 years ago. History of DVT and PE and is on anticoagulation. Past Surgical History: , brain surgery for meningioma 11 years ago Family History: [ ] Social History: [ ] Habits: [Never] smoker. [Denies] alcohol consumption. [Denies] illicit drug use Current Medications Medications (Trade) Dose Ordered Sig/Percy Route Start Time Stop Time Status Last Admin Dose Admin Cetirizine HCl (ZYRtec 5 MG TABLET) 10 mg HS PO 12/24/24 21:00 01/23/25 20:59 Famotidine (Pepcid 20mg Vial) 20 mg BID IV 12/23/24 21:00 01/22/25 20:59 12/24/24 08:27 20 MG Piperacillin Sod/ Tazobactam Sod 50 ml @ 12.5 mls/hr Q8H IV 12/24/24 03:00 01/03/25 02:59 12/24/24 12:00 12.5 MLS/HR Psyllium Hydrophilic Mucilloid (Metamucil) 1 tbs HSPRN PO 12/24/24 01:30 12/24/24 01:02 DC Rivaroxaban (Xarelto) 20 mg HS PO 12/24/24 21:00 01/23/25 20:59 Sodium Chloride 1,000 ml @ 100 mls/hr Q10H IV 12/23/24 20:00 01/22/25 19:59 12/23/24 20:09 100 MLS/HR Topiramate (TopaMAX) 50 mg HS PO 12/24/24 21:00 01/23/25 20:59 Review of Systems: CONST: [No fever, fatigue, or weight changes.] RESP: [No co shortness of breath.] GI: as per HPI Physical Examination: GENERAL: [No acute distress.] HEAD: [Normal with no signs of head trauma.] NECK: [TRACHEA MIDLINE LUNGS: [Clear breath sounds bilaterally. HEART: [Normal rate and rhythm. ABD: [Bowel sounds normal, soft, tender to left lower quadrant and left upper quadrant. No rebound. No guarding EXT: [No edema.] SKIN: [No rashes or lesions noted.] NEURO: [Awake, alert, and oriented x3. Vital Signs (last 8hr) Date Time Temp Pulse Resp B/P (MAP) Pulse Ox O2 Delivery O2 Flow Rate FiO2 12/24/24 12:16 98.1 59 18 102/55 94 Room Air 12/24/24 08:27 94 Room Air* 0 21 Laboratory: [ ] Hematology Labs: Test 12/24/24 06:08 Range/Units White Blood Count 8.8 # 4.8-10.8 K/uL Red Blood Count 3.54 L 4.00-5.50 MIL/uL Hemoglobin 10.7 L 12.0-16.0 g/dL Hematocrit 32.9 L 36-48 % Mean Corpuscular Volume 92.9 79-99 fL Mean Corpuscular Hemoglobin 30.2 27.0-33.0 pg Mean Corpuscular Hemoglobin Concent 32.5 32.0-36.0 g/dL Red Cell Distribution Width 12.9 11.0-15.5 % Platelet Count 306 130-400 K/uL Mean Platelet Volume 9.4 7.5-10.5 fL Immature Granulocyte % (Auto) 0.3 0-1 % Neutrophils (%) (Auto) 72.6 40.0-77.0 % Lymphocytes (%) (Auto) 17.0 L 21.0-51.0 % Monocytes (%) (Auto) 7.8 3.0-13.0 % Eosinophils (%) (Auto) 1.8 0.0-8.0 % Basophils (%) (Auto) 0.5 0.0-5.0 % Neutrophils # (Auto) 6.4 1.8-7.7 K/uL Lymphocytes # (Auto) 1.5 1.0-4.8 K/uL Monocytes # (Auto) 0.7 0.1-1.0 K/uL Eosinophils # (Auto) 0.16 0.00-0.70 K/uL Basophils # (Auto) 0.04 0.00-0.20 K/uL Absolute Immature Granulocyte (auto 0.03 0-1 K/uL Nucleated Red Blood Cells 0.0 0.0-0.19 % Chemistry Labs: Test 12/24/24 06:08 12/23/24 15:39 Range/Units Sodium Level 141 136-145 mmol/L Potassium Level 3.6 3.5-5.1 mmol/L Chloride Level 107 101-111 mmol/L Carbon Dioxide Level 28 21-32 mmol/L Blood Urea Nitrogen 11 7-18 mg/dL Creatinine 0.8 0.5-1.0 mg/dL Glomerular Filtration Rate Calc 89 >90 mL/min Random Glucose 82 70-105 mg/dL Total Calcium 8.5 8.5-10.1 mg/dL Magnesium Level 2.00 1.80-2.40 mg/dL Total Bilirubin 0.6 0.2-1.0 mg/dL Aspartate Amino Transf (AST/SGOT) 20 10-37 U/L Alanine Aminotransferase (ALT/SGPT) 37 # 12-78 U/L Alkaline Phosphatase 97 50-136 U/L Total Protein 6.6 6.0-8.3 g/dL Albumin 2.8 #L 3.5-5.0 g/dL Lipase 24 16-77 U/L Coagulation Labs: Test 12/24/24 06:08 Range/Units Prothrombin Time 10.7 9.6-11.6 SEC Prothromb Time International Ratio 1.01 0.85-1.15 Activated Partial Thromboplast Time 29.5 26.3-35.5 SEC Diagnostics / Radiology: [Copy/Paste Echos/Imaging Report here] Assessment: Acute diverticulitis with no perforation or abscess Plan: patient with acute diverticulitis plan is for clear liquid diet and IV antibiotics. We will keep it slow and keep her on the clear liquids for a day or two. We will follow her clinically before we advance the diet. Discussed with her that after discharge she will need a colonoscopy with me in six weeks KELSEY MCKOY MD Dec 24, 2024 16:22
[2024-12-24 16:25] VITALS: BP 108/62; PULSE 60; RESP 18; TEMP 98.1
--- NOTE | 2024-12-24 18:15 | NUR ---
INITIAL/DCP HOME Met w pt this afternoon to discuss dcp. Pt lives at home w her 18yo dtr. She is independent w ambulation and ADLs. Pt does not own any DME or receive services. [facility] preferred [facility]. Pt denies any insecurities with food, alf, and/or utilities. Discharge goal is to return home. Addendum: 12/25/24 at [address]ER CM Amended: Links added.
[2024-12-24 20:00] VITALS: BP 118/76; PULSE 76; RESP 17; TEMP 98.4; O2SAT 95
[2024-12-24] MEDS: topIRAMate 25 MG TABLET PO SCH (22:50)
[2024-12-24] MEDS: RIVAROXABAN 20 MG TABLET PO SCH (22:50)
[2024-12-24] MEDS: ceTIRIzine HCL 5 MG TABLET PO SCH (22:50)
[2024-12-25] VITALS (7 sets, daily range): BP systolic 92–126; BP diastolic 43–70; PULSE 51–72; RESP 16–20; TEMP 97.8–98.4; O2SAT 99
[2024-12-25 05:23] LABS: BASOPHILS # (AUTO) 0.04 K/uL (0.00-0.20); BASOPHILS % (AUTO) 0.6 % (0.0-5.0); EOSINOPHILS # (AUTO) 0.24 K/uL (0.00-0.70); EOSINOPHILS % (AUTO) 3.6 % (0.0-8.0); HEMATOCRIT 31.3 % (36-48); IMMATURE GRANULOCYTE ABSOLUTE 0.02 K/uL (0-1); LYMPHOCYTES # (AUTO) 1.6 K/uL (1.0-4.8); MEAN CORPUSCULAR HGB CONC 32.3 g/dL (32.0-36.0); MEAN CORPUSCULAR VOLUME 92.9 fL (79-99); MONOCYTES # (AUTO) 0.6 K/uL (0.1-1.0); MONOCYTES % (AUTO) 8.5 % (3.0-13.0); NEUTROPHILS # (AUTO) 4.1 K/uL (1.8-7.7); PLATELET COUNT (AUTO) 266 K/uL (130-400); RED BLOOD CELL COUNT(AUTO) 3.37 MIL/uL (4.00-5.50); RED CELL DISTRIBUTION WIDTH 12.3 % (11.0-15.5); WHITE BLOOD COUNT (AUTO) 6.6 K/uL (4.8-10.8)
[2024-12-25 05:32] LABS: CREATININE 0.7 mg/dL (0.5-1.0); POTASSIUM 4.1 mmol/L (3.5-5.1)
--- NOTE | 2024-12-25 09:15 | PN ---
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 She foods eating2 slices of pizza the previous night and had a large bowel movement the following morning. Soon after she developed abdominal cramping and pain which was accompanied by nausea that has progressively worsened. Vitals signs temperature 98.2, heart rate 98, blood pressure 145/78 saturation at 8% on room air. Labs: WBC 13 with negative left shift of neutrophils 79 the rest of the CBC result is unremarkable. Urinalysis is normal. CT abdomen and pelvis with contrast result revealed severe sigmoid diverticulitis. Multiple nonobstructive right renal calculus. Admitted for further assessment and treatment. 12/24/2024 Patient is seen and examined at the bedside. She states that her abdominal pain has significantly improved and currently rates the pain at 6/10 localized to left side. She denies fever, chills, shortness of breath, nausea, vomiting, chest pain, palpitations, diarrhea. Vitals blood pressure 123/69, temperature 98.1, pulse rate 81, respiratory rate 18. WBC improved from 13.4- 8.8, hemoglobin decreased from 12.3-10.7, PT INR normal, BMP unremarkable. Currently NPO. Pending surgery consult. 12/25/2024 Patient is seen and examined at the bedside. No acute events last night. She states that her abdominal pain has significantly improved, rates the pain at 5/10 localized to left side. Vitals temperature 98.4, pulse rate 72, respiratory rate 20, blood pressure 126/64, SpO2 97% on room air. Currently NPO. Labs WBC 6.6, hemoglobin decreased from 10.7-10.1, glucose low at 57. REVIEW OF SYSTEMS CONSTITUTIONAL: Denies fevers, chills, or night sweats. No unintentional weight loss reported. NEUROLOGICAL: Denies headache, amaurosis fugax, motor weakness, sensory de ficit, vertigo/spinning sensation, gait abnormalities, or tremors. ENT: No hearing loss, otalgia, otorrhea, rhinitis, rhinorrhea, hoarseness, or sore throat. CARDIOVASCULAR: Denies any exertional angina, dyspnea on exertion, orthopnea, paroxysmal nocturnal dyspnea, palpitations, life-threatening arrhythmias, claudication. PULMONARY: Denies any shortness of breath, cough, phlegm/sputum, hemoptysis, pleuritic chest pain. SLEEP: Denies morning headaches, daytime somnolence or napping. Denies difficulty falling asleep, staying asleep, waking from sleep. Denies knowledge of snoring. GASTROINTESTINAL: Complaints of moderate abdominal pain Denies any type of dysphagia to either liquids or solids. Denies vomiting, pyrosis, early satiety, diarrhea, constipation, or changes in stool consistency or caliber. Denies coffee-ground emesis, hematemesis, hematochezia, or melanotic stools. GENITOURINARY: Denies frequency, urgency, nocturia, hematuria or incontinence (Storage/Irritative symptoms.) Low urinary stream, straining to void, urinary intermittency or hesitancy, splitting of the voiding stream, terminal dribbling. ENDOCRINOLOGIC: Denies polyuria, polydipsia, polyphagia or heat/cold intolerances. HEMATOLOGIC: Denies thrombophilia/previous clots, or coagulopathy/bleeding disorders. ONCOLOGIC: Denies personal history of malignancy. DERMATOLOGIC: Denies rashes or pruritus. PSYCHIATRIC: Denies any suicidal or homicidal ideation. Denies hallucinations. PHYSICAL EXAM GENERAL APPEARANCE: The patient is awake, alert, and oriented, in no acute cardiopulmonary distress. NEUROLOGICAL: Cranial nerves II-XII grossly intact. Motor is 5/5 in bilateral upper and lower extremities proximal to distal. No sensory deficits. HEENT: Face is symmetric. Pupils are equal and reactive. Extraocular movements are intact. NECK: Supple. No JVD. No thyromegaly. No submental, submandibular, pre- /postauricular, occipital or supraclavicular lymphadenopathy. CHEST: Normal chest expansion. No Telemetry. LUNGS: Absence of any rales, rhonchi or any wheezing. CARDIOVASCULAR: Regular. S1 and S2 normal. No appreciable rubs, murmurs or gallops. ABDOMEN: Abdominal tenderness on palpation over left lower quadrant. Soft and nondistended. There is novoluntary guarding, or rigidity. : Deferred. No Jj. EXTREMITIES: Non-edematous and not cyanotic. No clubbing. Good capillary refill. SKIN: No skin breakdown. Vital Signs (last 8hr) Date Time Temp Pulse Resp B/P (MAP) Pulse Ox O2 Delivery O2 Flow Rate FiO2 12/25/24 08:33 99 Room Air* 0 21 12/25/24 04:00 98.4 72 20 126/64 97 Room Air LABS: Laboratory: Test 12/25/24 05:13 12/24/24 06:08 12/23/24 15:58 12/23/24 15:39 Range/Units White Blood Count 6.6 4.8-10.8 K/uL Red Blood Count 3.37 L 4.00-5.50 MIL/uL Hemoglobin 10.1 L 12.0-16.0 g/dL Hematocrit 31.3 L 36-48 % Mean Corpuscular Volume 92.9 79-99 fL Mean Corpuscular Hemoglobin 30.0 27.0-33.0 pg Mean Corpuscular Hemoglobin Concent 32.3 32.0-36.0 g/dL Red Cell Distribution Width 12.3 11.0-15.5 % Platelet Count 266 130-400 K/uL Mean Platelet Volume 8.9 7.5-10.5 fL Immature Granulocyte % (Auto) 0.3 0-1 % Neutrophils (%) (Auto) 63.0 40.0-77.0 % Lymphocytes (%) (Auto) 24.0 21.0-51.0 % Monocytes (%) (Auto) 8.5 3.0-13.0 % Eosinophils (%) (Auto) 3.6 0.0-8.0 % Basophils (%) (Auto) 0.6 0.0-5.0 % Neutrophils # (Auto) 4.1 1.8-7.7 K/uL Lymphocytes # (Auto) 1.6 1.0-4.8 K/uL Monocytes # (Auto) 0.6 0.1-1.0 K/uL Eosinophils # (Auto) 0.24 0.00-0.70 K/uL Basophils # (Auto) 0.04 0.00-0.20 K/uL Absolute Immature Granulocyte (auto 0.02 0-1 K/uL Nucleated Red Blood Cells 0.0 0.0-0.19 % Sodium Level 142 136-145 mmol/L Potassium Level 4.1 3.5-5.1 mmol/L Chloride Level 107 101-111 mmol/L Carbon Dioxide Level 27 21-32 mmol/L Blood Urea Nitrogen 10 7-18 mg/dL Creatinine 0.7 0.5-1.0 mg/dL Glomerular Filtration Rate Calc 105 >90 mL/min Random Glucose 57 L 70-105 mg/dL Total Calcium 8.5 8.5-10.1 mg/dL Prothrombin Time 10.7 9.6-11.6 SEC Prothromb Time International Ratio 1.01 0.85-1.15 Activated Partial Thromboplast Time 29.5 26.3-35.5 SEC Magnesium Level 2.00 1.80-2.40 mg/dL Total Bilirubin 0.6 0.2-1.0 mg/dL Aspartate Amino Transf (AST/SGOT) 20 10-37 U/L Alanine Aminotransferase (ALT/SGPT) 37 # 12-78 U/L Alkaline Phosphatase 97 50-136 U/L Total Protein 6.6 6.0-8.3 g/dL Albumin 2.8 #L 3.5-5.0 g/dL Urine Color LIGHT-YELLOW YELLOW Urine Appearance CLEAR CLEAR Urine pH 7.5 5.0-8.0 Urine Specific Stanley 1.012 1.001-1.031 Urine Protein NEGATIVE NEGATIVE mg/dL Urine Glucose (UA) NEGATIVE NEGATIVE mg/dL Urine Ketones NEGATIVE NEGATIVE mg/dL Urine Occult Blood NEGATIVE NEGATIVE Urine Nitrate NEGATIVE NEGATIVE Urine Bilirubin NEGATIVE NEGATIVE mg/dL Urine Urobilinogen 0.2 0.2-1.0 mg/dL Urine Leukocyte Esterase NEGATIVE NEGATIVE Saqib/uL Urine RBC 2-5 H 0-1 /HPF Urine WBC 0-1 0-1 /HPF Urine Bacteria RARE None Seen /HPF Urine HCG, Qualitative NEGATIVE NEGATIVE Lipase 24 16-77 U/L Current Medications Medications (Trade) Dose Ordered Sig/Percy Route PRN Reason Start Time Stop Time Status Last Admin Dose Admin Cetirizine HCl (ZYRtec 5 MG TABLET) 10 mg HS PO 12/24/24 21:00 01/23/25 20:59 12/24/24 22:50 10 MG Famotidine (Pepcid 20mg Vial) 20 mg BID IV 12/23/24 21:00 01/22/25 20:59 12/25/24 08:32 20 MG Magnesium Sulfate 50 ml @ 0 mls/hr PROTOCOL PRN IV OTHER [SEE ORDER COMMENTS] 12/23/24 20:00 01/22/25 19:59 Morphine Sulfate (morPHINE 2MG SYG) 2 mg Q4H PRN IV MODERATE PAIN (4-6) 12/23/24 20:00 12/30/24 19:59 12/24/24 23:53 2 MG Ondansetron HCl (zoFRAN 4MG INJ) 4 mg Q6H PRN IV NAUSEA/VOMITING 12/23/24 20:00 01/22/25 19:59 Piperacillin Sod/ Tazobactam Sod 50 ml @ 12.5 mls/hr Q8H IV 12/24/24 03:00 01/03/25 02:59 12/25/24 03:17 12.5 MLS/HR Potassium Chloride 100 ml @ 50 mls/hr AD PRN IV POTASSIUM PROTOCOL 12/23/24 20:00 01/22/25 19:59 12/24/24 08:27 50 MLS/HR Psyllium Hydrophilic Mucilloid (Metamucil) 1 tbs HSPRN PO 12/24/24 01:30 12/24/24 01:02 DC Psyllium Hydrophilic Mucilloid (Metamucil) 1 tbs HSPRN PRN PO CONSTIPATION 12/24/24 01:30 01/23/25 01:29 Rivaroxaban (Xarelto) 20 mg HS PO 12/24/24 21:00 01/23/25 20:59 12/24/24 22:50 20 MG Sodium Chloride 1,000 ml @ 100 mls/hr Q10H IV 12/23/24 20:00 01/22/25 19:59 12/24/24 23:53 100 MLS/HR Topiramate (TopaMAX) 50 mg HS PO 12/24/24 21:00 01/23/25 20:59 12/24/24 22:50 50 MG DIAGNOSTICS / RADIOLOGY: [ ] ASSESSMENT: Severe sigmoid diverticulitis POA Leukocytosis, POA improving Left leg DVT on Xarelto POA History of diverticulitis POA Acute on chronic anemia POA Pulmonary embolism on Xarelto POA Morbid obesity POA PLAN: NPO Severe sigmoid diverticulitis POA Continue NS @ 100 ml / hr and re evaluate Continue Zosyn IV for empiric coverage Continue p.r.n. medications for pain Avoid NSAIDs Appreciate surgery consult on we will follow their recommendations Conservative management with IV fluids, antibiotics for now as per surgery consult, no plan for surgical intervention for now Monitor for symptoms like hemodynamic instability, altered mental status, persistent or increasing abdominal pain Left leg DVT on Xarelto POA, Pulmonary embolism on Xarelto POA Currently on Xarelto 20 mg p.o. We will coordinate with surgery on continuing on Xarelto in case any procedures will be planned Acute on chronic anemia POA Hemoglobin currently at 10.1 Monitor H&H we will order iron panel Continue Famotidine 20 mg IV bid for GI prophylaxis Continue SCDs for DVT prophylaxis Monitor electrolytes and replace them as needed per protocol Continue prn medication for fever,pain,cough, nausea and vomiting Medications are reconciled Follow up on General surgery consult recommendations Repeat labs in a.m. ATTESTATION BY PHYSICIAN I have seen and examined the patient. I reviewed the documentation, medical decision making, and treatment plan as noted by the resident above. I agree with the findings and plan of care. Dong Braswell MD, PRIYANKA MD Dec 25, 2024 09:15
[2024-12-25] MEDS ORDERED: GLUCAGON 1MG KIT 1 MG ML IM PRN (12:00)
[2024-12-25] MEDS ORDERED: DEXTROSE 50%-WATER 50 ML DISP.SYRIN IV PRN (12:00)
--- NOTE | 2024-12-25 15:04 | PN ---
This is a 49-year-old female with concerns of diverticulitis Interval history: This 49-year-old female seen in her room resting Patient has pain improving Patient continues IV fluids and IV antibiotics WBCs unremarkable vitals stable Physical exam General: Awake alert and oriented Heart: Regular rate and rhythm} Lungs: Clear to auscultation no distress Abdomen: [Soft, nontender, nondistended Assessment : This is a 49-year-old female with the acute diverticulitis Plan: Patient to continue with the IV fluids and IV antibiotics Patient to be allowed clear liquid diet today she has been NPO Do not advance diet until cleared by Surgical team Nursing to report any further acute events No immediate surgical intervention planned Dr. Hayes to be updated on patient's status Vitals/Labs Vital Signs Date Time Temp Pulse Resp B/P (MAP) Pulse Ox O2 Delivery O2 Flow Rate FiO2 12/25/24 11:26 98.2 64 16 120/70 100 Room Air 12/25/24 08:33 0 21 Laboratory Tests 12/25/24 05:13 Medications Current Medications Sodium Chloride 1,000 ml @ 0 mls/hr ONCE ONCE IV Last administered on 12/23/24at 16:20; Start 12/23/24 at 15:30; Stop 12/23/24 at 15:34; Status DC Pantoprazole Sodium 40 mg ONCE ONCE IVP Last administered on 12/23/24at 16:20; Start 12/23/24 at 15:30; Stop 12/23/24 at 15:34; Status DC Iohexol 35,000 mg STK-MED ONCE IV; Start 12/23/24 at 17:34; Stop 12/23/24 at 17:34; Status DC Piperacillin Sod/ Tazobactam Sod 3.375 gm ONCE ONCE IVPB Last administered on 12/23/24at 18:57; Start 12/23/24 at 19:00; Stop 12/23/24 at 19:01; Status DC Morphine Sulfate 2 mg ONCE ONCE IVP Last administered on 12/23/24at 18:57; Start 12/23/24 at 19:00; Stop 12/23/24 at 19:01; Status DC Ondansetron HCl 4 mg ONCE ONCE IVP Last administered on 12/23/24at 18:57; Start 12/23/24 at 19:00; Stop 12/23/24 at 19:01; Status DC Morphine Sulfate 2 mg ONCE ONCE IVP; Start 12/23/24 at 19:00; Stop 12/23/24 at 18:59; Status DC Ondansetron HCl 4 mg Q6H PRN IV; Start 12/23/24 at 20:00; Stop 01/22/25 at 19:59 Piperacillin Sod/ Tazobactam Sod 50 ml @ 12.5 mls/hr Q8H IV Last administered on 12/25/24at 11:42; Start 12/24/24 at 03:00; Stop 01/03/25 at 02:59 Morphine Sulfate 2 mg Q4H PRN IV Last administered on 12/24/24at 23:53; Start 12/23/24 at 20:00; Stop 12/30/24 at 19:59 Sodium Chloride 1,000 ml @ 100 mls/hr Q10H IV Last administered on 12/25/24at 11:43; Start 12/23/24 at 20:00; Stop 01/22/25 at 19:59 Famotidine 20 mg BID IV Last administered on 12/25/24at 08:32; Start 12/23/24 at 21:00; Stop 01/22/25 at 20:59 Magnesium Sulfate 50 ml @ 0 mls/hr PROTOCOL PRN IV; Start 12/23/24 at 20:00; Stop 01/22/25 at 19:59 Potassium Chloride 100 ml @ 50 mls/hr AD PRN IV Last administered on 12/24/24at 08:27; Start 12/23/24 at 20:00; Stop 01/22/25 at 19:59 Rivaroxaban 20 mg HS PO Last administered on 12/24/24at 22:50; Start 12/24/24 at 21:00; Stop 01/23/25 at 20:59 Cetirizine HCl 10 mg HS PO Last administered on 12/24/24at 22:50; Start 12/24/24 at 21:00; Stop 01/23/25 at 20:59 Topiramate 50 mg HS PO Last administered on 12/24/24at 22:50; Start 12/24/24 at 21:00; Stop 01/23/25 at 20:59 Psyllium Hydrophilic Mucilloid 1 tbs HSPRN PO; Start 12/24/24 at 01:30; Stop 12/24/24 at 01:02; Status DC Psyllium Hydrophilic Mucilloid 1 tbs HSPRN PRN PO; Start 12/24/24 at 01:30; Stop 01/23/25 at 01:29 Dextrose 50 ml AD PRN IV; Start 12/25/24 at 12:00; Stop 01/24/25 at 11:59 Glucagon 1 mg AD PRN IM; Start 12/25/24 at 12:00; Stop 01/24/25 at 11:59 BAILEY BULLOCK Jr. Dec 25, 2024 15:04
[2024-12-26] VITALS (7 sets, daily range): BP systolic 109–137; BP diastolic 49–81; PULSE 54–68; RESP 16–20; TEMP 97.6–98.4; O2SAT 97
[2024-12-26] MEDS: acetaMINOPHEN 325 MG TAB PO PRN (00:49)
[2024-12-26 05:50] LABS: BASOPHILS # (AUTO) 0.04 K/uL (0.00-0.20); BASOPHILS % (AUTO) 0.8 % (0.0-5.0); EOSINOPHILS # (AUTO) 0.21 K/uL (0.00-0.70); HEMATOCRIT 31.4 % (36-48); IMMATURE GRANULOCYTE ABSOLUTE 0.01 K/uL (0-1); LYMPHOCYTES # (AUTO) 1.5 K/uL (1.0-4.8); LYMPHOCYTES % (AUTO) 29.1 % (21.0-51.0); MEAN CORPUSCULAR HGB CONC 33.1 g/dL (32.0-36.0); MEAN CORPUSCULAR VOLUME 90.5 fL (79-99); MONOCYTES # (AUTO) 0.4 K/uL (0.1-1.0); MONOCYTES % (AUTO) 8.3 % (3.0-13.0); NEUTROPHILS # (AUTO) 3.1 K/uL (1.8-7.7); NEUTROPHILS % (AUTO) 57.6 % (40.0-77.0); PLATELET COUNT (AUTO) 314 K/uL (130-400); RED BLOOD CELL COUNT(AUTO) 3.47 MIL/uL (4.00-5.50); RED CELL DISTRIBUTION WIDTH 12.2 % (11.0-15.5); WHITE BLOOD COUNT (AUTO) 5.3 K/uL (4.8-10.8)
[2024-12-26 06:06] LABS: RETICULOCYTE % (AUTO) 1.03 % (0.42-2.23)
[2024-12-26 06:46] LABS: CREATININE 0.8 mg/dL (0.5-1.0); MAGNESIUM 1.9 mg/dL (1.80-2.40); POTASSIUM 3.7 mmol/L (3.5-5.1)
[2024-12-26] MEDS: MAGNESIUM 2GM PREMIX 50ML 50 ML IV PRN (06:50)
[2024-12-26 06:58] LABS: % IRON SATURATION 16.1 % (22-44)
--- NOTE | 2024-12-26 09:47 | PN ---
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 She foods eating2 slices of pizza the previous night and had a large bowel movement the following morning. Soon after she developed abdominal cramping and pain which was accompanied by nausea that has progressively worsened. Vitals signs temperature 98.2, heart rate 98, blood pressure 145/78 saturation at 8% on room air. Labs: WBC 13 with negative left shift of neutrophils 79 the rest of the CBC result is unremarkable. Urinalysis is normal. CT abdomen and pelvis with contrast result revealed severe sigmoid diverticulitis. Multiple nonobstructive right renal calculus. Admitted for further assessment and treatment. 12/24/2024 Patient is seen and examined at the bedside. She states that her abdominal pain has significantly improved and currently rates the pain at 6/10 localized to left side. She denies fever, chills, shortness of breath, nausea, vomiting, chest pain, palpitations, diarrhea. Vitals blood pressure 123/69, temperature 98.1, pulse rate 81, respiratory rate 18. WBC improved from 13.4- 8.8, hemoglobin decreased from 12.3-10.7, PT INR normal, BMP unremarkable. Currently NPO. Pending surgery consult. 12/25/2024 Patient is seen and examined at the bedside. No acute events last night. She states that her abdominal pain has significantly improved, rates the pain at 5/10 localized to left side. Vitals temperature 98.4, pulse rate 72, respiratory rate 20, blood pressure 126/64, SpO2 97% on room air. Currently NPO. Labs WBC 6.6, hemoglobin decreased from 10.7-10.1, glucose low at 57. 12/26/2024 Patient is seen and examined at the bedside. No acute events last night. She states that her abdominal pain has significantly improved, rates the pain at 3/10 localized to left side. She denies fever, chills, shortness of breath, nausea, vomiting, shortness pain, palpitations, diarrhea, difficulty in urinating. Temperature 97.7, pulse rate 68, blood pressure 115/49, respiratory rate 18 , SpO2 97% on room air. Labs hemoglobin improved from 10.1-10.4, WBC 5.3, reticulocyte normal at 1.03, iron 37, TIBC 229, % saturation 16.1, ferritin 270 indicating anemia of chronic disease. Continue clear liquid diet as per surgery consult recommendation. REVIEW OF SYSTEMS CONSTITUTIONAL: Denies fevers, chills, or night sweats. No unintentional weight loss reported. NEUROLOGICAL: Denies headache, amaurosis fugax, motor weakness, sensory deficit, vertigo/spinning sensation, gait abnormalities, or tremors. ENT: No hearing loss, otalgia, otorrhea, rhinitis, rhinorrhea, hoarseness, or sore throat. CARDIOVASCULAR: Denies any exertional angina, dyspnea on exertion, orthopnea, paroxysmal nocturnal dyspnea, palpitations, life-threatening arrhythmias, claudication. PULMONARY: Denies any shortness of breath, cough, phlegm/sputum, hemoptysis, pleuritic chest pain. SLEEP: Denies morning headaches, daytime somnolence or napping. Denies difficulty falling asleep, staying asleep, waking from sleep. Denies knowledge of snoring. GASTROINTESTINAL: Complaints of mild abdominal pain Denies any type of dysphagia to either liquids or solids. Denies vomiting, pyrosis, early satiety, diarrhea, constipation, or changes in stool consistency or caliber. Denies coffee-ground emesis, hematemesis, hematochezia, or melanotic stools. GENITOURINARY: Denies frequency, urgency, nocturia, hematuria or incontinence (Storage/Irritative symptoms.) Low urinary stream, straining to void, urinary intermittency or hesitancy, splitting of the voiding stream, terminal dribbling. ENDOCRINOLOGIC: Denies polyuria, polydipsia, polyphagia or heat/cold intolerances. HEMATOLOGIC: Denies thrombophilia/previous clots, or coagulopathy/bleeding disorders. ONCOLOGIC: Denies personal history of malignancy. DERMATOLOGIC: Denies rashes or pruritus. PSYCHIATRIC: Denies any suicidal or homicidal ideation. Denies hallucinations. PHYSICAL EXAM GENERAL APPEARANCE: The patient is awake, alert, and oriented, in no acute cardiopulmonary distress. NEUROLOGICAL: Cranial nerves II-XII grossly intact. Motor is 5/5 in bilateral upper and lower extremities proximal to distal. No sensory deficits. HEENT: Face is symmetric. Pupils are equal and reactive. Extraocular movements are intact. NECK: Supple. No JVD. No thyromegaly. No submental, submandibular, pre- /postauricular, occipital or supraclavicular lymphadenopathy. CHEST: Normal chest expansion. No Telemetry. LUNGS: Absence of any rales, rhonchi or any wheezing. CARDIOVASCULAR: Regular. S1 and S2 normal. No appreciable rubs, murmurs or gallops. ABDOMEN: Mild Abdominal tenderness on palpation over left lower quadrant. Soft and nondistended. There is novoluntary guarding, or rigidity. : Deferred. No Jj. EXTREMITIES: Non-edematous and not cyanotic. No clubbing. Good capillary refill. SKIN: No skin breakdown. Vital Signs (last 8hr) Date Time Temp Pulse Resp B/P (MAP) Pulse Ox O2 Delivery O2 Flow Rate FiO2 12/26/24 08:00 97.9 54 17 109/62 96 Room Air 12/26/24 07:37 97 Room Air* 0 21 12/26/24 04:00 97.7 68 18 115/49 94 Room Air LABS: Laboratory: Test 12/26/24 05:41 Range/Units White Blood Count 5.3 4.8-10.8 K/uL Red Blood Count 3.47 L 4.00-5.50 MIL/uL Hemoglobin 10.4 L 12.0-16.0 g/dL Hematocrit 31.4 L 36-48 % Mean Corpuscular Volume 90.5 79-99 fL Mean Corpuscular Hemoglobin 30.0 27.0-33.0 pg Mean Corpuscular Hemoglobin Concent 33.1 32.0-36.0 g/dL Red Cell Distribution Width 12.2 11.0-15.5 % Platelet Count 314 130-400 K/uL Mean Platelet Volume 9.0 7.5-10.5 fL Immature Granulocyte % (Auto) 0.2 0-1 % Neutrophils (%) (Auto) 57.6 40.0-77.0 % Lymphocytes (%) (Auto) 29.1 21.0-51.0 % Monocytes (%) (Auto) 8.3 3.0-13.0 % Eosinophils (%) (Auto) 4.0 0.0-8.0 % Basophils (%) (Auto) 0.8 0.0-5.0 % Neutrophils # (Auto) 3.1 1.8-7.7 K/uL Lymphocytes # (Auto) 1.5 1.0-4.8 K/uL Monocytes # (Auto) 0.4 0.1-1.0 K/uL Eosinophils # (Auto) 0.21 0.00-0.70 K/uL Basophils # (Auto) 0.04 0.00-0.20 K/uL Absolute Immature Granulocyte (auto 0.01 0-1 K/uL Nucleated Red Blood Cells 0.0 0.0-0.19 % Reticulocyte Count (auto) 1.54691 0.42-2.23 % Immature Reticulocyte Fraction 11.70 H 0.18-0.48 % Sodium Level 143 136-145 mmol/L Potassium Level 3.7 3.5-5.1 mmol/L Chloride Level 108 101-111 mmol/L Carbon Dioxide Level 26 21-32 mmol/L Blood Urea Nitrogen 9 7-18 mg/dL Creatinine 0.8 0.5-1.0 mg/dL Glomerular Filtration Rate Calc 89 >90 mL/min Random Glucose 63 L 70-105 mg/dL Total Calcium 8.7 8.5-10.1 mg/dL Magnesium Level 1.90 1.80-2.40 mg/dL Iron Level 37 L 50-170 mcg/dL Total Iron Binding Capacity 229 L 250-450 mcg/dL Percent Iron Saturation 16.1 L 22-44 % Ferritin 270 H 15-150 ng/mL Vitamin B12 Level 600 193-986 pg/mL Current Medications Medications (Trade) Dose Ordered Sig/Percy Route PRN Reason Start Time Stop Time Status Last Admin Dose Admin Acetaminophen (TYLenol 325MG TAB) 650 mg Q4H PRN PO PAIN 1-3/FEVER 12/26/24 01:00 01/25/25 00:59 12/26/24 00:49 650 MG Cetirizine HCl (ZYRtec 5 MG TABLET) 10 mg HS PO 12/24/24 21:00 01/23/25 20:59 12/25/24 19:33 10 MG Dextrose (D50w) 50 ml AD PRN IV HYPOGLYCEMIA PROTOCOL 12/25/24 12:00 01/24/25 11:59 Famotidine (Pepcid 20mg Vial) 20 mg BID IV 12/23/24 21:00 01/22/25 20:59 12/26/24 07:33 20 MG Glucagon (Glucagon 1mg Kit) 1 mg AD PRN IM HYPOGLYCEMIA PROTOCOL 12/25/24 12:00 01/24/25 11:59 Magnesium Sulfate 50 ml @ 0 mls/hr PROTOCOL PRN IV OTHER [SEE ORDER COMMENTS] 12/23/24 20:00 01/22/25 19:59 12/26/24 06:50 25 MLS/HR Morphine Sulfate (morPHINE 2MG SYG) 2 mg Q4H PRN IV MODERATE PAIN (4-6) 12/23/24 20:00 12/30/24 19:59 12/24/24 23:53 2 MG Ondansetron HCl (zoFRAN 4MG INJ) 4 mg Q6H PRN IV NAUSEA/VOMITING 12/23/24 20:00 01/22/25 19:59 Piperacillin Sod/ Tazobactam Sod 50 ml @ 12.5 mls/hr Q8H IV 12/24/24 03:00 01/03/25 02:59 12/26/24 02:11 12.5 MLS/HR Potassium Chloride 100 ml @ 50 mls/hr AD PRN IV POTASSIUM PROTOCOL 12/23/24 20:00 01/22/25 19:59 12/24/24 08:27 50 MLS/HR Psyllium Hydrophilic Mucilloid (Metamucil) 1 tbs HS PRN PO CONSTIPATION 12/26/24 21:00 01/23/25 01:29 Psyllium Hydrophilic Mucilloid (Metamucil) 1 tbs HSPRN PO 12/24/24 01:30 12/24/24 01:02 DC Psyllium Hydrophilic Mucilloid (Metamucil) 1 tbs HSPRN PRN PO CONSTIPATION 12/24/24 01:30 12/26/24 07:03 DC Rivaroxaban (Xarelto) 20 mg HS PO 12/24/24 21:00 01/23/25 20:59 12/25/24 19:33 20 MG Sodium Chloride 1,000 ml @ 100 mls/hr Q10H IV 12/23/24 20:00 01/22/25 19:59 12/26/24 06:28 100 MLS/HR Topiramate (TopaMAX) 50 mg HS PO 12/24/24 21:00 01/23/25 20:59 12/25/24 19:33 50 MG DIAGNOSTICS / RADIOLOGY: [ ] ASSESSMENT: Severe sigmoid diverticulitis POA Leukocytosis, POA improving Left leg DVT on Xarelto POA History of diverticulitis POA Acute on chronic anemia POA Pulmonary embolism on Xarelto POA Morbid obesity POA PLAN: Clear Liquid diet Severe sigmoid diverticulitis POA Continue NS @ 100 ml / hr and re evaluate Continue Zosyn IV for empiric coverage Continue p.r.n. medications for pain Avoid NSAIDs Appreciate surgery consult and we will follow their recommendations Conservative management with IV fluids, antibiotics for now as per surgery consult, no plan for surgical intervention for now Monitor for symptoms like hemodynamic instability, altered mental status, persistent or increasing abdominal pain Left leg DVT on Xarelto POA, Pulmonary embolism on Xarelto POA Currently on Xarelto 20 mg p.o. Acute on chronic anemia POA Hemoglobin currently at 10.4 Anemia of Chronic disease Ferritin levels high at 270, we will defer from starting any iron supplements for now Monitor H&H Continue Famotidine 20 mg IV bid for GI prophylaxis Continue SCDs for DVT prophylaxis Monitor electrolytes and replace them as needed per protocol Continue prn medication for fever,pain,cough, nausea and vomiting Medications are reconciled Follow up on General surgery consult recommendations Repeat labs in a.m. ATTESTATION BY PHYSICIAN I have seen and examined the patient. I reviewed the documentation, medical decision making, and treatment plan as noted by the resident above. I agree with the findings and plan of care. Dong Braswell MD, PRIYANKA MD Dec 26, 2024 09:47
--- NOTE | 2024-12-26 10:15 | PN ---
This is a 49-year-old female with concerns of acute diverticulitis Interval history: This 49-year-old female seen resting Patient with cramp like sensation with clear liquids tolerated diet Patient is passing gas WBCs 5.3 with a hemoglobin of 10.4 Patient continue with IV fluids and IV antibiotics Physical exam General: Awake alert and oriented Heart: Regular rate and rhythm} Lungs: Clear to auscultation no distress Abdomen: [Soft, nontender, nondistended Assessment : This is a 49-year-old female with the acute diverticulitis Plan: Patient to remain on clear liquid diet today Possible advancement of diet tomorrow Continue with the IV fluids and IV antibiotics No surgical intervention planned at this time Continue with conservative management Dr. Hayes to be updated in patient's status and nursing report any further acute events Vitals/Labs Vital Signs Date Time Temp Pulse Resp B/P (MAP) Pulse Ox O2 Delivery O2 Flow Rate FiO2 12/26/24 08:00 97.9 54 17 109/62 96 Room Air 12/26/24 07:37 0 21 Laboratory Tests 12/26/24 05:41 Medications Current Medications Sodium Chloride 1,000 ml @ 0 mls/hr ONCE ONCE IV Last administered on 12/23/24at 16:20; Start 12/23/24 at 15:30; Stop 12/23/24 at 15:34; Status DC Pantoprazole Sodium 40 mg ONCE ONCE IVP Last administered on 12/23/24at 16:20; Start 12/23/24 at 15:30; Stop 12/23/24 at 15:34; Status DC Iohexol 35,000 mg STK-MED ONCE IV; Start 12/23/24 at 17:34; Stop 12/23/24 at 17:34; Status DC Piperacillin Sod/ Tazobactam Sod 3.375 gm ONCE ONCE IVPB Last administered on 12/23/24at 18:57; Start 12/23/24 at 19:00; Stop 12/23/24 at 19:01; Status DC Morphine Sulfate 2 mg ONCE ONCE IVP Last administered on 12/23/24at 18:57; Start 12/23/24 at 19:00; Stop 12/23/24 at 19:01; Status DC Ondansetron HCl 4 mg ONCE ONCE IVP Last administered on 12/23/24at 18:57; Start 12/23/24 at 19:00; Stop 12/23/24 at 19:01; Status DC Morphine Sulfate 2 mg ONCE ONCE IVP; Start 12/23/24 at 19:00; Stop 12/23/24 at 18:59; Status DC Ondansetron HCl 4 mg Q6H PRN IV; Start 12/23/24 at 20:00; Stop 01/22/25 at 19:59 Piperacillin Sod/ Tazobactam Sod 50 ml @ 12.5 mls/hr Q8H IV Last administered on 12/26/24at 02:11; Start 12/24/24 at 03:00; Stop 01/03/25 at 02:59 Morphine Sulfate 2 mg Q4H PRN IV Last administered on 12/24/24at 23:53; Start 12/23/24 at 20:00; Stop 12/30/24 at 19:59 Sodium Chloride 1,000 ml @ 100 mls/hr Q10H IV Last administered on 12/26/24at 06:28; Start 12/23/24 at 20:00; Stop 01/22/25 at 19:59 Famotidine 20 mg BID IV Last administered on 12/26/24at 07:33; Start 12/23/24 at 21:00; Stop 01/22/25 at 20:59 Magnesium Sulfate 50 ml @ 0 mls/hr PROTOCOL PRN IV Last administered on 12/26/24at 06:50; Start 12/23/24 at 20:00; Stop 01/22/25 at 19:59 Potassium Chloride 100 ml @ 50 mls/hr AD PRN IV Last administered on 12/24/24at 08:27; Start 12/23/24 at 20:00; Stop 01/22/25 at 19:59 Rivaroxaban 20 mg HS PO Last administered on 12/25/24at 19:33; Start 12/24/24 at 21:00; Stop 01/23/25 at 20:59 Cetirizine HCl 10 mg HS PO Last administered on 12/25/24at 19:33; Start 12/24/24 at 21:00; Stop 01/23/25 at 20:59 Topiramate 50 mg HS PO Last administered on 12/25/24at 19:33; Start 12/24/24 at 21:00; Stop 01/23/25 at 20:59 Psyllium Hydrophilic Mucilloid 1 tbs HSPRN PO; Start 12/24/24 at 01:30; Stop 12/24/24 at 01:02; Status DC Psyllium Hydrophilic Mucilloid 1 tbs HSPRN PRN PO; Start 12/24/24 at 01:30; Stop 12/26/24 at 07:03; Status DC Dextrose 50 ml AD PRN IV; Start 12/25/24 at 12:00; Stop 01/24/25 at 11:59 Glucagon 1 mg AD PRN IM; Start 12/25/24 at 12:00; Stop 01/24/25 at 11:59 Acetaminophen 650 mg Q4H PRN PO Last administered on 12/26/24at 00:49; Start 12/26/24 at 01:00; Stop 01/25/25 at 00:59 Psyllium Hydrophilic Mucilloid 1 tbs HS PRN PO; Start 12/26/24 at 21:00; Stop 01/23/25 at 01:29 BAILEY BULLOCK Jr. Dec 26, 2024 10:15
[2024-12-26] MEDS ORDERED: PoTASSium chl 10% ELIXIR 20MEQ 20 MEQ/15 ML UDCUP PO PRN (12:00)
[2024-12-26] MEDS ORDERED: PoTASSium chloRIDE 20MEQ/100ML 100 ML IV PRN (12:00)
[2024-12-26] MEDS: PoTASSium chloRIDE 20MEQ ER 20 MEQ ERTAB PO PRN (18:27)
[2024-12-26] MEDS ORDERED: PSYLLIUM SEED 1 EACH PACKET PO PRN (21:00)
[2024-12-27] VITALS: BP 133/68; PULSE 50; RESP 18; TEMP 98
[2024-12-27 04:00] VITALS: BP 104/52; PULSE 48; RESP 16; TEMP 97.9
[2024-12-27 05:18] LABS: HEMATOCRIT 31.3 % (36-48); MEAN CORPUSCULAR HEMOGLOBIN 30.4 pg (27.0-33.0); MEAN CORPUSCULAR HGB CONC 33.2 g/dL (32.0-36.0); MEAN CORPUSCULAR VOLUME 91.5 fL (79-99); RED BLOOD CELL COUNT(AUTO) 3.42 MIL/uL (4.00-5.50); RED CELL DISTRIBUTION WIDTH 12.1 % (11.0-15.5); WHITE BLOOD COUNT (AUTO) 4.9 K/uL (4.8-10.8)
[2024-12-27 05:32] LABS: CREATININE 0.7 mg/dL (0.5-1.0); POTASSIUM 3.8 mmol/L (3.5-5.1)
--- NOTE | 2024-12-27 06:06 | NUR ---
MEDICATION ADMINISTRATIONS POTASSIUM OF 3.8 ATTEMPTED TO ADMINISTER DOSE OF POTASSIUM PER PROTOCOL, PATIENT STATED PREFERENCE TO TAKE MEDICATIONS AFTER BREAKFAST. PATIENT OFFERED JELLO OR JUICE OF PATIENTS CHOOSING, PATIENT CONTINUED TO STATE PREFERENCE TO TAKE POTASSIUM AFTER BREAKFAST. PLAN OF CARE ONGOING WILL ENDORSE TO ONCOMING SHIFT NURSE.
[2024-12-27 08:00] VITALS: BP 118/62; PULSE 52; RESP 17; TEMP 97.7
[2024-12-27] MEDS ORDERED: PSYLLIUM SEED 1 EACH PACKET PO PRN (08:00)
[2024-12-27] MEDS: doCUSate SODIUM 100 MG CAP PO ONE (08:06)
--- NOTE | 2024-12-27 09:53 | PN ---
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 She foods eating2 slices of pizza the previous night and had a large bowel movement the following morning. Soon after she developed abdominal cramping and pain which was accompanied by nausea that has progressively worsened. Vitals signs temperature 98.2, heart rate 98, blood pressure 145/78 saturation at 8% on room air. Labs: WBC 13 with negative left shift of neutrophils 79 the rest of the CBC result is unremarkable. Urinalysis is normal. CT abdomen and pelvis with contrast result revealed severe sigmoid diverticulitis. Multiple nonobstructive right renal calculus. Admitted for further assessment and treatment. 12/24/2024 Patient is seen and examined at the bedside. She states that her abdominal pain has significantly improved and currently rates the pain at 6/10 localized to left side. She denies fever, chills, shortness of breath, nausea, vomiting, chest pain, palpitations, diarrhea. Vitals blood pressure 123/69, temperature 98.1, pulse rate 81, respiratory rate 18. WBC improved from 13.4- 8.8, hemoglobin decreased from 12.3-10.7, PT INR normal, BMP unremarkable. Currently NPO. Pending surgery consult. 12/25/2024 Patient is seen and examined at the bedside. No acute events last night. She states that her abdominal pain has significantly improved, rates the pain at 5/10 localized to left side. Vitals temperature 98.4, pulse rate 72, respiratory rate 20, blood pressure 126/64, SpO2 97% on room air. Currently NPO. Labs WBC 6.6, hemoglobin decreased from 10.7-10.1, glucose low at 57. 12/26/2024 Patient is seen and examined at the bedside. No acute events last night. She states that her abdominal pain has significantly improved, rates the pain at 3/10 localized to left side. She denies fever, chills, shortness of breath, nausea, vomiting, shortness pain, palpitations, diarrhea, difficulty in urinating. Temperature 97.7, pulse rate 68, blood pressure 115/49, respiratory rate 18 , SpO2 97% on room air. Labs hemoglobin improved from 10.1-10.4, WBC 5.3, reticulocyte normal at 1.03, iron 37, TIBC 229, % saturation 16.1, ferritin 270 indicating anemia of chronic disease. Continue clear liquid diet as per surgery consult recommendation. 12/27/2024 Patient is seen and examined at the bedside. No acute events last night. Her abdominal pain symptom has significantly improved. She denies fever, chills, chest pain, palpitations, nausea, vomiting, burning sensation when urinating. She had a bowel movement today, liquid in consistency. Vitals temper ature 97.7, pulse rate 52, respiratory rate17 , blood pressure 118/62. Labs hemoglobin stable at 10.4, WBC 4.9, glucose 67, BMP unremarkable. Continue clear liquid diet for now as per surgery consult recommendation. REVIEW OF SYSTEMS CONSTITUTIONAL: Denies fevers, chills, or night sweats. No unintentional weight loss reported. NEUROLOGICAL: Denies headache, amaurosis fugax, motor weakness, sensory deficit, vertigo/spinning sensation, gait abnormalities, or tremors. ENT: No hearing loss, otalgia, otorrhea, rhinitis, rhinorrhea, hoarseness, or sore throat. CARDIOVASCULAR: Denies any exertional angina, dyspnea on exertion, orthopnea, paroxysmal nocturnal dyspnea, palpitations, life-threatening arrhythmias, claudication. PULMONARY: Denies any shortness of breath, cough, phlegm/sputum, hemoptysis, pleuritic chest pain. SLEEP: Denies morning headaches, daytime somnolence or napping. Denies difficulty falling asleep, staying asleep, waking from sleep. Denies knowledge of snoring. GASTROINTESTINAL: mild abdominal pain Denies any type of dysphagia to either liquids or solids. Denies vomiting, pyrosis, early satiety, diarrhea, constipation, or changes in stool consistency or caliber. Denies coffee-ground emesis, hematemesis, hematochezia, or melanotic stools. GENITOURINARY: Denies frequency, urgency, nocturia, hematuria or incontinence (Storage/Irritative symptoms.) Low urinary stream, straining to void, urinary intermittency or hesitancy, splitting of the voiding stream, terminal dribbling. ENDOCRINOLOGIC: Denies polyuria, polydipsia, polyphagia or heat/cold intolerances. HEMATOLOGIC: Denies thrombophilia/previous clots, or coagulopathy/bleeding disorders. ONCOLOGIC: Denies personal history of malignancy. DERMATOLOGIC: Denies rashes or pruritus. PSYCHIATRIC: Denies any suicidal or homicidal ideation. Denies hallucinations. PHYSICAL EXAM GENERAL APPEARANCE: The patient is awake, alert, and oriented, in no acute cardiopulmonary distress. NEUROLOGICAL: Cranial nerves II-XII grossly intact. Motor is 5/5 in bilateral upper and lower extremities proximal to distal. No sensory deficits. HEENT: Face is symmetric. Pupils are equal and reactive. Extraocular movements are intact. NECK: Supple. No JVD. No thyromegaly. No submental, submandibular, pre- /postauricular, occipital or supraclavicular lymphadenopathy. CHEST: Normal chest expansion. No Telemetry. LUNGS: Absence of any rales, rhonchi or any wheezing. CARDIOVASCULAR: Regular. S1 and S2 normal. No appreciable rubs, murmurs or gallops. ABDOMEN: Mild Abdominal tenderness on palpation over left lower quadrant. Soft and nondistended. There is novoluntary guarding, or rigidity. : Deferred. No Jj. EXTREMITIES: Non-edematous and not cyanotic. No clubbing. Good capillary refill. SKIN: No skin breakdown. Vital Signs (last 8hr) Date Time Temp Pulse Resp B/P (MAP) Pulse Ox O2 Delivery O2 Flow Rate FiO2 12/27/24 08:00 97.7 52 17 118/62 98 Room Air 12/27/24 04:00 97.9 48 16 104/52 99 Room Air LABS: Laboratory: Test 12/27/24 05:05 12/26/24 05:41 Range/Units White Blood Count 4.9 4.8-10.8 K/uL Red Blood Count 3.42 L 4.00-5.50 MIL/uL Hemoglobin 10.4 L 12.0-16.0 g/dL Hematocrit 31.3 L 36-48 % Mean Corpuscular Volume 91.5 79-99 fL Mean Corpuscular Hemoglobin 30.4 27.0-33.0 pg Mean Corpuscular Hemoglobin Concent 33.2 32.0-36.0 g/dL Red Cell Distribution Width 12.1 11.0-15.5 % Platelet Count 312 130-400 K/uL Mean Platelet Volume 9.1 7.5-10.5 fL Nucleated Red Blood Cells 0.0 0.0-0.19 % Sodium Level 141 136-145 mmol/L Potassium Level 3.8 3.5-5.1 mmol/L Chloride Level 107 101-111 mmol/L Carbon Dioxide Level 24 21-32 mmol/L Blood Urea Nitrogen 7 7-18 mg/dL Creatinine 0.7 0.5-1.0 mg/dL Glomerular Filtration Rate Calc 105 >90 mL/min Random Glucose 67 L 70-105 mg/dL Total Calcium 8.5 8.5-10.1 mg/dL Magnesium Level 2.00 1.80-2.40 mg/dL Immature Granulocyte % (Auto) 0.2 0-1 % Neutrophils (%) (Auto) 57.6 40.0-77.0 % Lymphocytes (%) (Auto) 29.1 21.0-51.0 % Monocytes (%) (Auto) 8.3 3.0-13.0 % Eosinophils (%) (Auto) 4.0 0.0-8.0 % Basophils (%) (Auto) 0.8 0.0-5.0 % Neutrophils # (Auto) 3.1 1.8-7.7 K/uL Lymphocytes # (Auto) 1.5 1.0-4.8 K/uL Monocytes # (Auto) 0.4 0.1-1.0 K/uL Eosinophils # (Auto) 0.21 0.00-0.70 K/uL Basophils # (Auto) 0.04 0.00-0.20 K/uL Absolute Immature Granulocyte (auto 0.01 0-1 K/uL Reticulocyte Count (auto) 1.27203 0.42-2.23 % Immature Reticulocyte Fraction 11.70 H 0.18-0.48 % Iron Level 37 L 50-170 mcg/dL Total Iron Binding Capacity 229 L 250-450 mcg/dL Percent Iron Saturation 16.1 L 22-44 % Ferritin 270 H 15-150 ng/mL Vitamin B12 Level 600 193-986 pg/mL Current Medications Medications (Trade) Dose Ordered Sig/Percy Route PRN Reason Start Time Stop Time Status Last Admin Dose Admin Acetaminophen (TYLenol 325MG TAB) 650 mg Q4H PRN PO PAIN 1-3/FEVER 12/26/24 01:00 01/25/25 00:59 12/27/24 00:26 650 MG Cetirizine HCl (ZYRtec 5 MG TABLET) 10 mg HS PO 12/24/24 21:00 01/23/25 20:59 12/26/24 20:09 10 MG Dextrose (D50w) 50 ml AD PRN IV HYPOGLYCEMIA PROTOCOL 12/25/24 12:00 01/24/25 11:59 Famotidine (Pepcid 20mg Vial) 20 mg BID IV 12/23/24 21:00 01/22/25 20:59 12/27/24 08:06 20 MG Glucagon (Glucagon 1mg Kit) 1 mg AD PRN IM HYPOGLYCEMIA PROTOCOL 12/25/24 12:00 01/24/25 11:59 Magnesium Sulfate 50 ml @ 0 mls/hr PROTOCOL PRN IV OTHER [SEE ORDER COMMENTS] 12/23/24 20:00 01/22/25 19:59 12/26/24 06:50 25 MLS/HR Morphine Sulfate (morPHINE 2MG SYG) 2 mg Q4H PRN IV MODERATE PAIN (4-6) 12/23/24 20:00 12/30/24 19:59 12/24/24 23:53 2 MG Ondansetron HCl (zoFRAN 4MG INJ) 4 mg Q6H PRN IV NAUSEA/VOMITING 12/23/24 20:00 01/22/25 19:59 Piperacillin Sod/ Tazobactam Sod 50 ml @ 12.5 mls/hr Q8H IV 12/24/24 03:00 01/03/25 02:59 12/27/24 02:20 12.5 MLS/HR Potassium Chloride 100 ml @ 50 mls/hr AD PRN IV POTASSIUM PROTOCOL 12/23/24 20:00 01/22/25 19:59 12/24/24 08:27 50 MLS/HR Potassium Chloride 100 ml @ 100 mls/hr AD PRN IV POTASSIUM PROTOCOL 12/26/24 12:00 12/26/24 11:53 DC Potassium Chloride (K-Dur/Klor-Con 20meq) 20 meq AD PRN PO POTASSIUM PROTOCOL 12/26/24 12:00 01/25/25 11:59 12/27/24 08:10 20 MEQ Potassium Chloride (KCl 10% Elixir 20meq/15ml) 20 meq AD PRN PO POTASSIUM PROTOCOL 12/26/24 12:00 01/25/25 11:59 Psyllium Hydrophilic Mucilloid (Metamucil) 1 tbs DAILY PRN PO CONSTIPATION 12/27/24 08:00 01/23/25 01:29 Psyllium Hydrophilic Mucilloid (Metamucil) 1 tbs HS PRN PO CONSTIPATION 12/26/24 21:00 12/27/24 07:58 DC Psyllium Hydrophilic Mucilloid (Metamucil) 1 tbs HSPRN PO 12/24/24 01:30 12/24/24 01:02 DC Psyllium Hydrophilic Mucilloid (Metamucil) 1 tbs HSPRN PRN PO CONSTIPATION 12/24/24 01:30 12/26/24 07:03 DC Rivaroxaban (Xarelto) 20 mg HS PO 12/24/24 21:00 01/23/25 20:59 12/26/24 20:10 20 MG Sodium Chloride 1,000 ml @ 100 mls/hr Q10H IV 12/23/24 20:00 01/22/25 19:59 12/27/24 07:08 100 MLS/HR Topiramate (TopaMAX) 50 mg HS PO 12/24/24 21:00 01/23/25 20:59 12/26/24 20:10 50 MG DIAGNOSTICS / RADIOLOGY: [ ] ASSESSMENT: Severe sigmoid diverticulitis POA Leukocytosis, POA improving Left leg DVT on Xarelto POA History of diverticulitis POA Acute on chronic anemia POA Pulmonary embolism on Xarelto POA Morbid obesity POA PLAN: Clear Liquid diet Severe sigmoid diverticulitis POA Continue NS @ 100 ml / hr Continue Zosyn IV for empiric coverage Continue p.r.n. medications for pain Avoid NSAIDs Appreciate surgery consult and we will follow their recommendations Conservative management with IV fluids, antibiotics for now as per surgery consult, no plan for surgical intervention for now Monitor for symptoms like hemodynamic instability, altered mental status, persistent or increasing abdominal pain Left leg DVT on Xarelto POA, Pulmonary embolism on Xarelto POA Currently on Xarelto 20 mg p.o. Acute on chronic anemia POA Hemoglobin currently at 10.4 Anemia of Chronic disease Ferritin levels high at 270, we will defer from starting any iron supplements for now Monitor H&H Continue Famotidine 20 mg IV bid for GI prophylaxis Continue SCDs for DVT prophylaxis Monitor electrolytes and replace them as needed per protocol Continue prn medication for fever,pain,cough, nausea and vomiting Medications are reconciled Follow up on General surgery consult recommendations Repeat labs in a.m. ATTESTATION BY PHYSICIAN I have seen and examined the patient. I reviewed the documentation, medical decision making, and treatment plan as noted by the resident above. I agree with the findings and plan of care. Dong Braswell MD, PRIYANKA MD Dec 27, 2024 09:53
[2024-12-27 12:00] VITALS: BP 123/62; PULSE 48; RESP 16; TEMP 97.6
--- NOTE | 2024-12-27 14:06 | PN ---
This is a 49-year-old female with concerns of sigmoid diverticulitis Interval history: This 49-year-old female seen in her room resting comfortably Patient tolerating liquid diet better today Multiple bowel movements reported Patient continues with IV fluids and IV antibiotics CBC unremarkable Vitals stable Physical exam General: Awake alert and oriented Heart: Regular rate and rhythm} Lungs: Clear to auscultation no distress Abdomen: [Soft, nontender, nondistended Assessment : This is a 49-year-old female with sigmoid diverticulitis Plan: At this point in time we will order CT of abdomen and pelvis with oral IV contrast tomorrow to evaluate improvement in progression of diverticulitis Patient to continue with the IV fluids and IV antibiotics Patient will need to be NPO at midnight Continue with conservative management Dr. Hayes to be updated in patient's status and surgical team to follow patient closely Vitals/Labs Vital Signs Date Time Temp Pulse Resp B/P (MAP) Pulse Ox O2 Delivery O2 Flow Rate FiO2 12/27/24 12:00 97.5 48 16 123/62 98 Room Air 12/26/24 22:32 0 21 Laboratory Tests 12/27/24 05:05 Medications Current Medications Sodium Chloride 1,000 ml @ 0 mls/hr ONCE ONCE IV Last administered on 12/23/24at 16:20; Start 12/23/24 at 15:30; Stop 12/23/24 at 15:34; Status DC Pantoprazole Sodium 40 mg ONCE ONCE IVP Last administered on 12/23/24at 16:20; Start 12/23/24 at 15:30; Stop 12/23/24 at 15:34; Status DC Iohexol 35,000 mg STK-MED ONCE IV; Start 12/23/24 at 17:34; Stop 12/23/24 at 17:34; Status DC Piperacillin Sod/ Tazobactam Sod 3.375 gm ONCE ONCE IVPB Last administered on 12/23/24at 18:57; Start 12/23/24 at 19:00; Stop 12/23/24 at 19:01; Status DC Morphine Sulfate 2 mg ONCE ONCE IVP Last administered on 12/23/24at 18:57; Start 12/23/24 at 19:00; Stop 12/23/24 at 19:01; Status DC Ondansetron HCl 4 mg ONCE ONCE IVP Last administered on 12/23/24at 18:57; Start 12/23/24 at 19:00; Stop 12/23/24 at 19:01; Status DC Morphine Sulfate 2 mg ONCE ONCE IVP; Start 12/23/24 at 19:00; Stop 12/23/24 at 18:59; Status DC Ondansetron HCl 4 mg Q6H PRN IV; Start 12/23/24 at 20:00; Stop 01/22/25 at 19:59 Piperacillin Sod/ Tazobactam Sod 50 ml @ 12.5 mls/hr Q8H IV Last administered on 12/27/24at 13:18; Start 12/24/24 at 03:00; Stop 01/03/25 at 02:59 Morphine Sulfate 2 mg Q4H PRN IV Last administered on 12/24/24at 23:53; Start 12/23/24 at 20:00; Stop 12/30/24 at 19:59 Sodium Chloride 1,000 ml @ 100 mls/hr Q10H IV Last administered on 12/27/24at 07:08; Start 12/23/24 at 20:00; Stop 01/22/25 at 19:59 Famotidine 20 mg BID IV Last administered on 12/27/24at 08:06; Start 12/23/24 at 21:00; Stop 01/22/25 at 20:59 Magnesium Sulfate 50 ml @ 0 mls/hr PROTOCOL PRN IV Last administered on 12/26/24at 06:50; Start 12/23/24 at 20:00; Stop 01/22/25 at 19:59 Potassium Chloride 100 ml @ 50 mls/hr AD PRN IV Last administered on 12/24/24at 08:27; Start 12/23/24 at 20:00; Stop 01/22/25 at 19:59 Rivaroxaban 20 mg HS PO Last administered on 12/26/24at 20:10; Start 12/24/24 at 21:00; Stop 01/23/25 at 20:59 Cetirizine HCl 10 mg HS PO Last administered on 12/26/24at 20:09; Start 12/24/24 at 21:00; Stop 01/23/25 at 20:59 Topiramate 50 mg HS PO Last administered on 12/26/24at 20:10; Start 12/24/24 at 21:00; Stop 01/23/25 at 20:59 Psyllium Hydrophilic Mucilloid 1 tbs HSPRN PO; Start 12/24/24 at 01:30; Stop 12/24/24 at 01:02; Status DC Psyllium Hydrophilic Mucilloid 1 tbs HSPRN PRN PO; Start 12/24/24 at 01:30; Stop 12/26/24 at 07:03; Status DC Dextrose 50 ml AD PRN IV; Start 12/25/24 at 12:00; Stop 01/24/25 at 11:59 Glucagon 1 mg AD PRN IM; Start 12/25/24 at 12:00; Stop 01/24/25 at 11:59 Acetaminophen 650 mg Q4H PRN PO Last administered on 12/27/24at 00:26; Start 12/26/24 at 01:00; Stop 01/25/25 at 00:59 Psyllium Hydrophilic Mucilloid 1 tbs HS PRN PO; Start 12/26/24 at 21:00; Stop 12/27/24 at 07:58; Status DC Potassium Chloride 100 ml @ 100 mls/hr AD PRN IV; Start 12/26/24 at 12:00; Stop 12/26/24 at 11:53; Status DC Potassium Chloride 20 meq AD PRN PO; Start 12/26/24 at 12:00; Stop 01/25/25 at 11:59 Potassium Chloride 20 meq AD PRN PO Last administered on 12/27/24at 08:10; Start 12/26/24 at 12:00; Stop 01/25/25 at 11:59 Psyllium Hydrophilic Mucilloid 1 tbs DAILY PRN PO; Start 12/27/24 at 08:00; Stop 01/23/25 at 01:29 Docusate Sodium 100 mg DAILY ONCE PO Last administered on 12/27/24at 08:06; Start 12/27/24 at 09:00; Stop 12/27/24 at 09:01; Status DC BAILEY BULLOCK Jr. Dec 27, 2024 14:06
[2024-12-27 16:00] VITALS: BP 131/60; PULSE 46; RESP 16; TEMP 97.7
[2024-12-27 20:00] VITALS: BP 128/62; PULSE 50; RESP 18; TEMP 98
[2024-12-28] VITALS (7 sets, daily range): BP systolic 111–146; BP diastolic 61–75; PULSE 49–57; RESP 18–20; TEMP 97.6–98.4; O2SAT 95–96
[2024-12-28] MEDS ORDERED: DIATR MEGLU/DIATRIZOATE SODIUM 30 ML BOTTLE ONE (04:53)
[2024-12-28 06:44] LABS: HEMATOCRIT 35.8 % (36-48); MEAN CORPUSCULAR HEMOGLOBIN 30.7 pg (27.0-33.0); MEAN CORPUSCULAR HGB CONC 33.8 g/dL (32.0-36.0); MEAN CORPUSCULAR VOLUME 90.9 fL (79-99); RED BLOOD CELL COUNT(AUTO) 3.94 MIL/uL (4.00-5.50); RED CELL DISTRIBUTION WIDTH 12.1 % (11.0-15.5); WHITE BLOOD COUNT (AUTO) 4.4 K/uL (4.8-10.8)
[2024-12-28 06:56] LABS: CREATININE 0.9 mg/dL (0.5-1.0); MAGNESIUM 1.9 mg/dL (1.80-2.40); POTASSIUM 3.8 mmol/L (3.5-5.1)
[2024-12-28] MEDS ORDERED: IOHEXOL-350 75 ML VIAL IV ONE (09:47)
--- NOTE | 2024-12-28 09:48 | PN ---
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 She foods eating2 slices of pizza the previous night and had a large bowel movement the following morning. Soon after she developed abdominal cramping and pain which was accompanied by nausea that has progressively worsened. Vitals signs temperature 98.2, heart rate 98, blood pressure 145/78 saturation at 8% on room air. Labs: WBC 13 with negative left shift of neutrophils 79 the rest of the CBC result is unremarkable. Urinalysis is normal. CT abdomen and pelvis with contrast result revealed severe sigmoid diverticulitis. Multiple nonobstructive right renal calculus. Admitted for further assessment and treatment. 12/24/2024 Patient is seen and examined at the bedside. She states that her abdominal pain has significantly improved and currently rates the pain at 6/10 localized to left side. She denies fever, chills, shortness of breath, nausea, vomiting, chest pain, palpitations, diarrhea. Vitals blood pressure 123/69, temperature 98.1, pulse rate 81, respiratory rate 18. WBC improved from 13.4- 8.8, hemoglobin decreased from 12.3-10.7, PT INR normal, BMP unremarkable. Currently NPO. Pending surgery consult. 12/25/2024 Patient is seen and examined at the bedside. No acute events last night. She states that her abdominal pain has significantly improved, rates the pain at 5/10 localized to left side. Vitals temperature 98.4, pulse rate 72, respiratory rate 20, blood pressure 126/64, SpO2 97% on room air. Currently NPO. Labs WBC 6.6, hemoglobin decreased from 10.7-10.1, glucose low at 57. 12/26/2024 Patient is seen and examined at the bedside. No acute events last night. She states that her abdominal pain has significantly improved, rates the pain at 3/10 localized to left side. She denies fever, chills, shortness of breath, nausea, vomiting, shortness pain, palpitations, diarrhea, difficulty in urinating. Temperature 97.7, pulse rate 68, blood pressure 115/49, respiratory rate 18 , SpO2 97% on room air. Labs hemoglobin improved from 10.1-10.4, WBC 5.3, reticulocyte normal at 1.03, iron 37, TIBC 229, % saturation 16.1, ferritin 270 indicating anemia of chronic disease. Continue clear liquid diet as per surgery consult recommendation. 12/27/2024 Patient is seen and examined at the bedside. No acute events last night. Her abdominal pain symptom has significantly improved. She denies fever, chills, chest pain, palpitations, nausea, vomiting, burning sensation when urinating. She had a bowel movement today, liquid in consistency. Vitals temper ature 97.7, pulse rate 52, respiratory rate17 , blood pressure 118/62. Labs hemoglobin stable at 10.4, WBC 4.9, glucose 67, BMP unremarkable. Continue clear liquid diet for now as per surgery consult recommendation. 12/28/2024 Patient is seen and examined at the bedside. She states that she feels better and has no complaints. No acute events last night. Vitals blood pressure 115/67, pulse rate 55, temperature 98.1. Labs WBC 4.4, hemoglobin improved from 10.4-12.1, BMP unremarkable. Scheduled for repeat CT abdomen/pelvis with IV contrast today to assess the progression of diverticulitis as per surgery consult recommendation. REVIEW OF SYSTEMS CONSTITUTIONAL: Denies fevers, chills, or night sweats. No unintentional weight loss reported. NEUROLOGICAL: Denies headache, amaurosis fugax, motor weakness, sensory deficit, vertigo/spinning sensation, gait abnormalities, or tremors. ENT: No hearing loss, otalgia, otorrhea, rhinitis, rhinorrhea, hoarseness, or sore throat. CARDIOVASCULAR: Denies any exertional angina, dyspnea on exertion, orthopnea, paroxysmal nocturnal dyspnea, palpitations, life-threatening arrhythmias, c laudication. PULMONARY: Denies any shortness of breath, cough, phlegm/sputum, hemoptysis, pleuritic chest pain. SLEEP: Denies morning headaches, daytime somnolence or napping. Denies difficulty falling asleep, staying asleep, waking from sleep. Denies knowledge of snoring. GASTROINTESTINAL: Denies any type of dysphagia to either liquids or solids. Denies vomiting, pyrosis, early satiety, diarrhea, constipation, or changes in stool consistency or caliber. Denies coffee-ground emesis, hematemesis, hematochezia, or melanotic stools. GENITOURINARY: Denies frequency, urgency, nocturia, hematuria or incontinence (Storage/Irritative symptoms.) Low urinary stream, straining to void, urinary intermittency or hesitancy, splitting of the voiding stream, terminal dribbling. ENDOCRINOLOGIC: Denies polyuria, polydipsia, polyphagia or heat/cold intolerances. HEMATOLOGIC: Denies thrombophilia/previous clots, or coagulopathy/bleeding disorders. ONCOLOGIC: Denies personal history of malignancy. DERMATOLOGIC: Denies rashes or pruritus. PSYCHIATRIC: Denies any suicidal or homicidal ideation. Denies hallucinations. PHYSICAL EXAM GENERAL APPEARANCE: The patient is awake, alert, and oriented, in no acute cardiopulmonary distress. NEUROLOGICAL: Cranial nerves II-XII grossly intact. Motor is 5/5 in bilateral upper and lower extremities proximal to distal. No sensory deficits. HEENT: Face is symmetric. Pupils are equal and reactive. Extraocular movements are intact. NECK: Supple. No JVD. No thyromegaly. No submental, submandibular, pre- /postauricular, occipital or supraclavicular lymphadenopathy. CHEST: Normal chest expansion. No Telemetry. LUNGS: Absence of any rales, rhonchi or any wheezing. CARDIOVASCULAR: Regular. S1 and S2 normal. No appreciable rubs, murmurs or gallops. ABDOMEN: Mild Abdominal tenderness on palpation over left lower quadrant. Soft and nondistended. There is novoluntary guarding, or rigidity. : Deferred. No Jj. EXTREMITIES: Non-edematous and not cyanotic. No clubbing. Good capillary refill. SKIN: No skin breakdown. Vital Signs (last 8hr) Date Time Temp Pulse Resp B/P (MAP) Pulse Ox O2 Delivery O2 Flow Rate FiO2 12/28/24 08:00 98.1 55 18 115/67 96 Room Air 21 12/28/24 04:00 97.5 53 20 136/64 96 Room Air LABS: Laboratory: Test 12/28/24 06:32 Range/Units White Blood Count 4.4 L 4.8-10.8 K/uL Red Blood Count 3.94 L 4.00-5.50 MIL/uL Hemoglobin 12.1 12.0-16.0 g/dL Hematocrit 35.8 L 36-48 % Mean Corpuscular Volume 90.9 79-99 fL Mean Corpuscular Hemoglobin 30.7 27.0-33.0 pg Mean Corpuscular Hemoglobin Concent 33.8 32.0-36.0 g/dL Red Cell Distribution Width 12.1 11.0-15.5 % Platelet Count 394 # 130-400 K/uL Mean Platelet Volume 9.0 7.5-10.5 fL Nucleated Red Blood Cells 0.0 0.0-0.19 % Sodium Level 143 136-145 mmol/L Potassium Level 3.8 3.5-5.1 mmol/L Chloride Level 106 101-111 mmol/L Carbon Dioxide Level 28 21-32 mmol/L Blood Urea Nitrogen 6 L 7-18 mg/dL Creatinine 0.9 0.5-1.0 mg/dL Glomerular Filtration Rate Calc 77 >90 mL/min Random Glucose 81 70-105 mg/dL Total Calcium 9.1 8.5-10.1 mg/dL Magnesium Level 1.90 1.80-2.40 mg/dL Current Medications Medications (Trade) Dose Ordered Sig/Percy Route PRN Reason Start Time Stop Time Status Last Admin Dose Admin Acetaminophen (TYLenol 325MG TAB) 650 mg Q4H PRN PO PAIN 1-3/FEVER 12/26/24 01:00 01/25/25 00:59 12/27/24 00:26 650 MG Cetirizine HCl (ZYRtec 5 MG TABLET) 10 mg HS PO 12/24/24 21:00 01/23/25 20:59 12/27/24 19:36 10 MG Dextrose (D50w) 50 ml AD PRN IV HYPOGLYCEMIA PROTOCOL 12/25/24 12:00 01/24/25 11:59 Famotidine (Pepcid 20mg Vial) 20 mg BID IV 12/23/24 21:00 01/22/25 20:59 12/28/24 08:01 20 MG Glucagon (Glucagon 1mg Kit) 1 mg AD PRN IM HYPOGLYCEMIA PROTOCOL 12/25/24 12:00 01/24/25 11:59 Magnesium Sulfate 50 ml @ 0 mls/hr PROTOCOL PRN IV OTHER [SEE ORDER COMMENTS] 12/23/24 20:00 01/22/25 19:59 12/28/24 07:13 25 MLS/HR Morphine Sulfate (morPHINE 2MG SYG) 2 mg Q4H PRN IV MODERATE PAIN (4-6) 12/23/24 20:00 12/30/24 19:59 12/24/24 23:53 2 MG Ondansetron HCl (zoFRAN 4MG INJ) 4 mg Q6H PRN IV NAUSEA/VOMITING 12/23/24 20:00 01/22/25 19:59 Piperacillin Sod/ Tazobactam Sod 50 ml @ 12.5 mls/hr Q8H IV 12/24/24 03:00 01/03/25 02:59 12/28/24 02:57 12.5 MLS/HR Potassium Chloride 100 ml @ 50 mls/hr AD PRN IV POTASSIUM PROTOCOL 12/23/24 20:00 01/22/25 19:59 12/24/24 08:27 50 MLS/HR Potassium Chloride 100 ml @ 100 mls/hr AD PRN IV POTASSIUM PROTOCOL 12/26/24 12:00 12/26/24 11:53 DC Potassium Chloride (K-Dur/Klor-Con 20meq) 20 meq AD PRN PO POTASSIUM PROTOCOL 12/26/24 12:00 01/25/25 11:59 12/27/24 19:37 20 MEQ Potassium Chloride (KCl 10% Elixir 20meq/15ml) 20 meq AD PRN PO POTASSIUM PROTOCOL 12/26/24 12:00 01/25/25 11:59 Psyllium Hydrophilic Mucilloid (Metamucil) 1 tbs DAILY PRN PO CONSTIPATION 12/27/24 08:00 01/23/25 01:29 Psyllium Hydrophilic Mucilloid (Metamucil) 1 tbs HS PRN PO CONSTIPATION 12/26/24 21:00 12/27/24 07:58 DC Psyllium Hydrophilic Mucilloid (Metamucil) 1 tbs HSPRN PO 12/24/24 01:30 12/24/24 01:02 DC Psyllium Hydrophilic Mucilloid (Metamucil) 1 tbs HSPRN PRN PO CONSTIPATION 12/24/24 01:30 12/26/24 07:03 DC Rivaroxaban (Xarelto) 20 mg HS PO 12/24/24 21:00 01/23/25 20:59 12/27/24 19:36 20 MG Sodium Chloride 1,000 ml @ 100 mls/hr Q10H IV 12/23/24 20:00 01/22/25 19:59 12/28/24 05:10 100 MLS/HR Topiramate (TopaMAX) 50 mg HS PO 12/24/24 21:00 01/23/25 20:59 12/27/24 19:35 50 MG DIAGNOSTICS / RADIOLOGY: [ ] ASSESSMENT: Severe sigmoid diverticulitis POA Leukocytosis, POA improving History of Left leg DVT on Xarelto POA History of diverticulitis POA Acute on chronic anemia POA History of Pulmonary embolism on Xarelto POA Morbid obesity POA PLAN: Clear Liquid diet Severe sigmoid diverticulitis POA Continue NS @ 100 ml / hr Continue Zosyn IV for empiric coverage Continue p.r.n. medications for pain Avoid NSAIDs Appreciate surgery consult and we will follow their recommendations Conservative management with IV fluids, antibiotics for now as per surgery consult, no plan for surgical intervention for now Monitor for symptoms like hemodynamic instability, altered mental status, persistent or increasing abdominal pain Left leg DVT on Xarelto POA, Pulmonary embolism on Xarelto POA Currently on Xarelto 20 mg p.o. Acute on chronic anemia POA Hemoglobin improved from 10.4-12.1 Anemia of Chronic disease Ferritin levels high at 270, we will defer from starting any iron supplements for now Monitor H&H Continue Famotidine 20 mg IV bid for GI prophylaxis Continue SCDs for DVT prophylaxis Monitor electrolytes and replace them as needed per protocol Continue prn medication for fever,pain,cough, nausea and vomiting Medications are reconciled Follow up on General surgery consult recommendations Repeat labs in a.m. ATTESTATION BY PHYSICIAN I have seen and examined the patient. I reviewed the documentation, medical decision making, and treatment plan as noted by the resident above. I agree with the findings and plan of care. Dong Braswell MD, PRIYANKA MD Dec 28, 2024 09:48
--- NOTE | 2024-12-28 11:06 | HMCIMG ---
Exam Type: CT ABDOMEN/PELVIS W/CONTRAST Clinical Information: diverticulitis Comparison: None Contrast: 100 cc's Isovue 370 IV, no complications or adverse reactions CT Dose Index (CTDI): 31.60 mGy Dose Length Product (DLP): 1740.80 total mGy-cm Findings: Right-sided nonobstructing renal calculi are seen. There is no hydronephrosis. No worrisome renal masses are seen. Left kidney unremarkable. The lung bases are clear. The stomach is unremarkable. It shows no wall thickening. No gross ulceration is seen. It is not overly distended. There are no surrounding inflammatory changes. No wall lesions are identified to suggest cancer. The spleen is unremarkable. It is not enlarged. The pancreas shows normal anatomy. It is not fatty replaced. It shows no lesions. The pancreatic duct is not dilated. The gallbladder is unremarkable. It shows no cholelithiasis. The gallbladder wall is normal in thickness. There is no pericholecystic fluid. The is no acute or chronic inflammation noted. The adrenal glands are unremarkable. There is no enlargement. No lesions are noted. The liver is unremarkable. It shows no focal masses. The appendix is unremarkable. It shows no evidence of inflammation. No appendicolith is seen. The small bowel is unremarkable. There is no evidence of dilatation to suggest obstruction. No evidence of adynamic ileus is seen. There is no small bowel wall thickening to suggest enteritis. The large bowel shows diverticulosis particularly involving the sigmoid colon. In addition, there are inflammatory changes of the sigmoid suggestive of acute diverticulitis. There is no evidence of bowel perforation. The colon is otherwise unremarkable. The urinary bladder is unremarkable. There is no wall thickening to suggest tumor or inflammation. There are no intraluminal calculi. There are no diverticula. There is no evidence of chronic bladder outlet obstruction. There is no evidence of urinary bladder distention to suggest urinary retention. The other pelvic structures are unremarkable. The bony and vascular structures are unremarkable for the patient's age. IMPRESSION: Acute sigmoid diverticulitis. Inflammatory changes have somewhat subsided since the prior exam. Right nonobstructing nephrolithiasis. This study was performed using dose reduction techniques to include automated exposure control and/or adjustment of the mA and/or kV according to patient size.
[2024-12-29 00:11] VITALS: BP 127/73; PULSE 55; RESP 20; TEMP 98
[2024-12-29 04:00] VITALS: BP 104/62; PULSE 63; RESP 20; TEMP 98
[2024-12-29 06:14] LABS: HEMATOCRIT 33.7 % (36-48); MEAN CORPUSCULAR HGB CONC 32.9 g/dL (32.0-36.0); MEAN CORPUSCULAR VOLUME 91.1 fL (79-99); RED BLOOD CELL COUNT(AUTO) 3.7 MIL/uL (4.00-5.50); RED CELL DISTRIBUTION WIDTH 12.3 % (11.0-15.5); WHITE BLOOD COUNT (AUTO) 5.4 K/uL (4.8-10.8)
[2024-12-29 06:30] LABS: CREATININE 0.9 mg/dL (0.5-1.0); MAGNESIUM 2.1 mg/dL (1.80-2.40); POTASSIUM 3.5 mmol/L (3.5-5.1)
[2024-12-29 08:00] VITALS: BP 110/62; PULSE 45; RESP 18; TEMP 97.7
--- NOTE | 2024-12-29 09:37 | PN ---
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 She foods eating2 slices of pizza the previous night and had a large bowel movement the following morning. Soon after she developed abdominal cramping and pain which was accompanied by nausea that has progressively worsened. Vitals signs temperature 98.2, heart rate 98, blood pressure 145/78 saturation at 8% on room air. Labs: WBC 13 with negative left shift of neutrophils 79 the rest of the CBC result is unremarkable. Urinalysis is normal. CT abdomen and pelvis with contrast result revealed severe sigmoid diverticulitis. Multiple nonobstructive right renal calculus. Admitted for further assessment and treatment. 12/24/2024 Patient is seen and examined at the bedside. She states that her abdominal pain has significantly improved and currently rates the pain at 6/10 localized to left side. She denies fever, chills, shortness of breath, nausea, vomiting, chest pain, palpitations, diarrhea. Vitals blood pressure 123/69, temperature 98.1, pulse rate 81, respiratory rate 18. WBC improved from 13.4- 8.8, hemoglobin decreased from 12.3-10.7, PT INR normal, BMP unremarkable. Currently NPO. Pending surgery consult. 12/25/2024 Patient is seen and examined at the bedside. No acute events last night. She states that her abdominal pain has significantly improved, rates the pain at 5/10 localized to left side. Vitals temperature 98.4, pulse rate 72, respiratory rate 20, blood pressure 126/64, SpO2 97% on room air. Currently NPO. Labs WBC 6.6, hemoglobin decreased from 10.7-10.1, glucose low at 57. 12/26/2024 Patient is seen and examined at the bedside. No acute events last night. She states that her abdominal pain has significantly improved, rates the pain at 3/10 localized to left side. She denies fever, chills, shortness of breath, nausea, vomiting, shortness pain, palpitations, diarrhea, difficulty in urinating. Temperature 97.7, pulse rate 68, blood pressure 115/49, respiratory rate 18 , SpO2 97% on room air. Labs hemoglobin improved from 10.1-10.4, WBC 5.3, reticulocyte normal at 1.03, iron 37, TIBC 229, % saturation 16.1, ferritin 270 indicating anemia of chronic disease. Continue clear liquid diet as per surgery consult recommendation. 12/27/2024 Patient is seen and examined at the bedside. No acute events last night. Her abdominal pain symptom has significantly improved. She denies fever, chills, chest pain, palpitations, nausea, vomiting, burning sensation when urinating. She had a bowel movement today, liquid in consistency. Vitals temper ature 97.7, pulse rate 52, respiratory rate17 , blood pressure 118/62. Labs hemoglobin stable at 10.4, WBC 4.9, glucose 67, BMP unremarkable. Continue clear liquid diet for now as per surgery consult recommendation. 12/28/2024 Patient is seen and examined at the bedside. She states that she feels better and has no complaints. No acute events last night. Vitals blood pressure 115/67, pulse rate 55, temperature 98.1. Labs WBC 4.4, hemoglobin improved from 10.4-12.1, BMP unremarkable. Scheduled for repeat CT abdomen/pelvis with IV contrast today to assess the progression of diverticulitis as per surgery consult recommendation. REVIEW OF SYSTEMS CONSTITUTIONAL: Denies fevers, chills, or night sweats. No unintentional weight loss reported. NEUROLOGICAL: Denies headache, amaurosis fugax, motor weakness, sensory deficit, vertigo/spinning sensation, gait abnormalities, or tremors. ENT: No hearing loss, otalgia, otorrhea, rhinitis, rhinorrhea, hoarseness, or sore throat. CARDIOVASCULAR: Denies any exertional angina, dyspnea on exertion, orthopnea, paroxysmal nocturnal dyspnea, palpitations, life-threatening arrhythmias, c laudication. PULMONARY: Denies any shortness of breath, cough, phlegm/sputum, hemoptysis, pleuritic chest pain. SLEEP: Denies morning headaches, daytime somnolence or napping. Denies difficulty falling asleep, staying asleep, waking from sleep. Denies knowledge of snoring. GASTROINTESTINAL: Denies any type of dysphagia to either liquids or solids. Denies vomiting, pyrosis, early satiety, diarrhea, constipation, or changes in stool consistency or caliber. Denies coffee-ground emesis, hematemesis, hematochezia, or melanotic stools. GENITOURINARY: Denies frequency, urgency, nocturia, hematuria or incontinence (Storage/Irritative symptoms.) Low urinary stream, straining to void, urinary intermittency or hesitancy, splitting of the voiding stream, terminal dribbling. ENDOCRINOLOGIC: Denies polyuria, polydipsia, polyphagia or heat/cold intolerances. HEMATOLOGIC: Denies thrombophilia/previous clots, or coagulopathy/bleeding disorders. ONCOLOGIC: Denies personal history of malignancy. DERMATOLOGIC: Denies rashes or pruritus. PSYCHIATRIC: Denies any suicidal or homicidal ideation. Denies hallucinations. PHYSICAL EXAM GENERAL APPEARANCE: The patient is awake, alert, and oriented, in no acute cardiopulmonary distress. NEUROLOGICAL: Cranial nerves II-XII grossly intact. Motor is 5/5 in bilateral upper and lower extremities proximal to distal. No sensory deficits. HEENT: Face is symmetric. Pupils are equal and reactive. Extraocular movements are intact. NECK: Supple. No JVD. No thyromegaly. No submental, submandibular, pre- /postauricular, occipital or supraclavicular lymphadenopathy. CHEST: Normal chest expansion. No Telemetry. LUNGS: Absence of any rales, rhonchi or any wheezing. CARDIOVASCULAR: Regular. S1 and S2 normal. No appreciable rubs, murmurs or gallops. ABDOMEN: Mild Abdominal tenderness on palpation over left lower quadrant. Soft and nondistended. There is novoluntary guarding, or rigidity. : Deferred. No Jj. EXTREMITIES: Non-edematous and not cyanotic. No clubbing. Good capillary refill. SKIN: No skin breakdown. Vital Signs (last 8hr) Date Time Temp Pulse Resp B/P (MAP) Pulse Ox O2 Delivery O2 Flow Rate FiO2 12/29/24 08:00 97.7 45 18 110/62 96 Room Air 21 12/29/24 04:00 98.1 63 20 104/62 94 Room Air LABS: Laboratory: Test 12/29/24 05:38 Range/Units White Blood Count 5.4 4.8-10.8 K/uL Red Blood Count 3.70 L 4.00-5.50 MIL/uL Hemoglobin 11.1 L 12.0-16.0 g/dL Hematocrit 33.7 L 36-48 % Mean Corpuscular Volume 91.1 79-99 fL Mean Corpuscular Hemoglobin 30.0 27.0-33.0 pg Mean Corpuscular Hemoglobin Concent 32.9 32.0-36.0 g/dL Red Cell Distribution Width 12.3 11.0-15.5 % Platelet Count 359 130-400 K/uL Mean Platelet Volume 9.2 7.5-10.5 fL Nucleated Red Blood Cells 0.0 0.0-0.19 % Sodium Level 144 136-145 mmol/L Potassium Level 3.5 3.5-5.1 mmol/L Chloride Level 108 101-111 mmol/L Carbon Dioxide Level 26 21-32 mmol/L Blood Urea Nitrogen 7 7-18 mg/dL Creatinine 0.9 0.5-1.0 mg/dL Glomerular Filtration Rate Calc 77 >90 mL/min Random Glucose 75 70-105 mg/dL Total Calcium 8.9 8.5-10.1 mg/dL Magnesium Level 2.10 1.80-2.40 mg/dL Current Medications Medications (Trade) Dose Ordered Sig/Percy Route PRN Reason Start Time Stop Time Status Last Admin Dose Admin Acetaminophen (TYLenol 325MG TAB) 650 mg Q4H PRN PO PAIN 1-3/FEVER 12/26/24 01:00 01/25/25 00:59 12/29/24 03:58 650 MG Cetirizine HCl (ZYRtec 5 MG TABLET) 10 mg HS PO 12/24/24 21:00 01/23/25 20:59 12/28/24 20:51 10 MG Dextrose (D50w) 50 ml AD PRN IV HYPOGLYCEMIA PROTOCOL 12/25/24 12:00 01/24/25 11:59 Famotidine (Pepcid 20mg Vial) 20 mg BID IV 12/23/24 21:00 01/22/25 20:59 12/29/24 09:32 20 MG Glucagon (Glucagon 1mg Kit) 1 mg AD PRN IM HYPOGLYCEMIA PROTOCOL 12/25/24 12:00 01/24/25 11:59 Magnesium Sulfate 50 ml @ 0 mls/hr PROTOCOL PRN IV OTHER [SEE ORDER COMMENTS] 12/23/24 20:00 01/22/25 19:59 12/28/24 07:13 25 MLS/HR Morphine Sulfate (morPHINE 2MG SYG) 2 mg Q4H PRN IV MODERATE PAIN (4-6) 12/23/24 20:00 12/28/24 22:59 DC 12/24/24 23:53 2 MG Ondansetron HCl (zoFRAN 4MG INJ) 4 mg Q6H PRN IV NAUSEA/VOMITING 12/23/24 20:00 01/22/25 19:59 Piperacillin Sod/ Tazobactam Sod 50 ml @ 12.5 mls/hr Q8H IV 12/24/24 03:00 01/03/25 02:59 12/29/24 03:15 12.5 MLS/HR Potassium Chloride 100 ml @ 50 mls/hr AD PRN IV POTASSIUM PROTOCOL 12/23/24 20:00 01/22/25 19:59 12/24/24 08:27 50 MLS/HR Potassium Chloride 100 ml @ 100 mls/hr AD PRN IV POTASSIUM PROTOCOL 12/26/24 12:00 12/26/24 11:53 DC Potassium Chloride (K-Dur/Klor-Con 20meq) 20 meq AD PRN PO POTASSIUM PROTOCOL 12/26/24 12:00 01/25/25 11:59 12/27/24 19:37 20 MEQ Potassium Chloride (KCl 10% Elixir 20meq/15ml) 20 meq AD PRN PO POTASSIUM PROTOCOL 12/26/24 12:00 01/25/25 11:59 Psyllium Hydrophilic Mucilloid (Metamucil) 1 tbs DAILY PRN PO CONSTIPATION 12/27/24 08:00 01/23/25 01:29 Psyllium Hydrophilic Mucilloid (Metamucil) 1 tbs HS PRN PO CONSTIPATION 12/26/24 21:00 12/27/24 07:58 DC Psyllium Hydrophilic Mucilloid (Metamucil) 1 tbs HSPRN PO 12/24/24 01:30 12/24/24 01:02 DC Psyllium Hydrophilic Mucilloid (Metamucil) 1 tbs HSPRN PRN PO CONSTIPATION 12/24/24 01:30 12/26/24 07:03 DC Rivaroxaban (Xarelto) 20 mg HS PO 12/24/24 21:00 01/23/25 20:59 12/28/24 20:52 20 MG Sodium Chloride 1,000 ml @ 100 mls/hr Q10H IV 12/23/24 20:00 01/22/25 19:59 12/29/24 06:00 100 MLS/HR Topiramate (TopaMAX) 50 mg HS PO 12/24/24 21:00 01/23/25 20:59 12/28/24 20:51 50 MG DIAGNOSTICS / RADIOLOGY: [ ] ASSESSMENT: Severe sigmoid diverticulitis POA Leukocytosis, POA improving History of Left leg DVT on Xarelto POA History of diverticulitis POA Acute on chronic anemia POA History of Pulmonary embolism on Xarelto POA Morbid obesity POA PLAN: Clear Liquid diet Severe sigmoid diverticulitis POA Continue NS @ 100 ml / hr Continue Zosyn IV for empiric coverage Continue p.r.n. medications for pain Avoid NSAIDs Appreciate surgery consult and we will follow their recommendations Conservative management with IV fluids, antibiotics for now as per surgery consult, no plan for surgical intervention for now Monitor for symptoms like hemodynamic instability, altered mental status, persistent or increasing abdominal pain Left leg DVT on Xarelto POA, Pulmonary embolism on Xarelto POA Currently on Xarelto 20 mg p.o. Acute on chronic anemia POA Hemoglobin improved from 10.4-12.1 Anemia of Chronic disease Ferritin levels high at 270, we will defer from starting any iron supplements for now Monitor H&H Continue Famotidine 20 mg IV bid for GI prophylaxis Continue SCDs for DVT prophylaxis Monitor electrolytes and replace them as needed per protocol Continue prn medication for fever,pain,cough, nausea and vomiting Medications are reconciled Follow up on General surgery consult recommendations Repeat labs in MARITZA Millan MD Dec 29, 2024 09:37
[2024-12-29 11:57] VITALS: BP 116/62; PULSE 44; RESP 18; TEMP 97.9
--- NOTE | 2024-12-29 13:12 | PN ---
This is a 49-year-old female with resolving diverticulitis Interval history: This 49-year-old female seen in her room resting Patient yesterday reporting some abdominal discomfort Labs and vitals unremarkable CT imaging yesterday showing improvement of diverticulitis Today patient tolerating diet Diarrhea has lessened Patient continues with the IV fluids and IV antibiotics Physical exam General: Awake alert and oriented Heart: Regular rate and rhythm} Lungs: Clear to auscultation no distress Abdomen: [Soft, nontender, nondistended Assessment : This is a 49-year-old female with acute sigmoid diverticulitis Plan: From surgical standpoint patient is cleared for discharge Patient will need to be discharged with p.o. antibiotics Patient will be recommended to follow up in six weeks with Dr. Hayes is office for potential colonoscopy Nursing to report any further acute events Dr. Hayes to be updated on patient's status Vitals/Labs Vital Signs Date Time Temp Pulse Resp B/P (MAP) Pulse Ox O2 Delivery O2 Flow Rate FiO2 12/29/24 11:57 97.9 44 18 116/62 96 Room Air 12/29/24 08:00 21 12/28/24 20:40 0 Laboratory Tests 12/29/24 05:38 Medications Current Medications Sodium Chloride 1,000 ml @ 0 mls/hr ONCE ONCE IV Last administered on 12/23/24at 16:20; Start 12/23/24 at 15:30; Stop 12/23/24 at 15:34; Status DC Pantoprazole Sodium 40 mg ONCE ONCE IVP Last administered on 12/23/24at 16:20; Start 12/23/24 at 15:30; Stop 12/23/24 at 15:34; Status DC Iohexol 35,000 mg STK-MED ONCE IV; Start 12/23/24 at 17:34; Stop 12/23/24 at 17:34; Status DC Piperacillin Sod/ Tazobactam Sod 3.375 gm ONCE ONCE IVPB Last administered on 12/23/24at 18:57; Start 12/23/24 at 19:00; Stop 12/23/24 at 19:01; Status DC Morphine Sulfate 2 mg ONCE ONCE IVP Last administered on 12/23/24at 18:57; Start 12/23/24 at 19:00; Stop 12/23/24 at 19:01; Status DC Ondansetron HCl 4 mg ONCE ONCE IVP Last administered on 12/23/24at 18:57; Start 12/23/24 at 19:00; Stop 12/23/24 at 19:01; Status DC Morphine Sulfate 2 mg ONCE ONCE IVP; Start 12/23/24 at 19:00; Stop 12/23/24 at 18:59; Status DC Ondansetron HCl 4 mg Q6H PRN IV; Start 12/23/24 at 20:00; Stop 01/22/25 at 19:59 Piperacillin Sod/ Tazobactam Sod 50 ml @ 12.5 mls/hr Q8H IV Last administered on 12/29/24at 12:49; Start 12/24/24 at 03:00; Stop 01/03/25 at 02:59 Morphine Sulfate 2 mg Q4H PRN IV Last administered on 12/24/24at 23:53; Start 12/23/24 at 20:00; Stop 12/28/24 at 22:59; Status DC Sodium Chloride 1,000 ml @ 100 mls/hr Q10H IV Last administered on 12/29/24at 12:50; Start 12/23/24 at 20:00; Stop 01/22/25 at 19:59 Famotidine 20 mg BID IV Last administered on 12/29/24at 09:32; Start 12/23/24 at 21:00; Stop 01/22/25 at 20:59 Magnesium Sulfate 50 ml @ 0 mls/hr PROTOCOL PRN IV Last administered on 12/28/24at 07:13; Start 12/23/24 at 20:00; Stop 01/22/25 at 19:59 Potassium Chloride 100 ml @ 50 mls/hr AD PRN IV Last administered on 12/24/24at 08:27; Start 12/23/24 at 20:00; Stop 01/22/25 at 19:59 Rivaroxaban 20 mg HS PO Last administered on 12/28/24at 20:52; Start 12/24/24 at 21:00; Stop 01/23/25 at 20:59 Cetirizine HCl 10 mg HS PO Last administered on 12/28/24at 20:51; Start 12/24/24 at 21:00; Stop 01/23/25 at 20:59 Topiramate 50 mg HS PO Last administered on 12/28/24at 20:51; Start 12/24/24 at 21:00; Stop 01/23/25 at 20:59 Psyllium Hydrophilic Mucilloid 1 tbs HSPRN PO; Start 12/24/24 at 01:30; Stop 12/24/24 at 01:02; Status DC Psyllium Hydrophilic Mucilloid 1 tbs HSPRN PRN PO; Start 12/24/24 at 01:30; Stop 12/26/24 at 07:03; Status DC Dextrose 50 ml AD PRN IV; Start 12/25/24 at 12:00; Stop 01/24/25 at 11:59 Glucagon 1 mg AD PRN IM; Start 12/25/24 at 12:00; Stop 01/24/25 at 11:59 Acetaminophen 650 mg Q4H PRN PO Last administered on 12/29/24at 03:58; Start 12/26/24 at 01:00; Stop 01/25/25 at 00:59 Psyllium Hydrophilic Mucilloid 1 tbs HS PRN PO; Start 12/26/24 at 21:00; Stop 12/27/24 at 07:58; Status DC Potassium Chloride 100 ml @ 100 mls/hr AD PRN IV; Start 12/26/24 at 12:00; Stop 12/26/24 at 11:53; Status DC Potassium Chloride 20 meq AD PRN PO; Start 12/26/24 at 12:00; Stop 01/25/25 at 11:59 Potassium Chloride 20 meq AD PRN PO Last administered on 12/27/24at 19:37; Start 12/26/24 at 12:00; Stop 01/25/25 at 11:59 Psyllium Hydrophilic Mucilloid 1 tbs DAILY PRN PO; Start 12/27/24 at 08:00; Stop 01/23/25 at 01:29 Docusate Sodium 100 mg DAILY ONCE PO Last administered on 12/27/24at 08:06; Start 12/27/24 at 09:00; Stop 12/27/24 at 09:01; Status DC Diatrizoate Meglum/ Diatrizoate Sod 30 ml STK-MED ONCE .ROUTE; Start 12/28/24 at 04:53; Stop 12/28/24 at 04:53; Status DC Iohexol 75 ml STK-MED ONCE IV; Start 12/28/24 at 09:47; Stop 12/28/24 at 09:48; Status DC BAILEY BULLOCK Jr. Dec 29, 2024 13:12
[2024-12-29] MEDS ORDERED: AMOX1TAB16 PO (15:23)
[2024-12-29] MEDS ORDERED: FAMO-136 PO (15:23)
--- NOTE | 2024-12-29 15:26 | DS ---
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 She has mentioned about eating 2 slices of pizza the previous night and had a large bowel movement the following morning. Soon after she developed abdominal cramping and pain which was accompanied by nausea that has progressively worsened. Vitals signs temperature 98.2, heart rate 98, blood pressure 145/78 saturation at 8% on room air. Labs: WBC 13 with negative left shift of neutrophils 79 the rest of the CBC result is unremarkable. Urinalysis is normal. CT abdomen and pelvis with contrast result revealed severe sigmoid diverticulitis. Multiple nonobstructive right renal calculus. Admitted for further assessment and treatment. Surgery Consult was obtained. She was started on IV fluids, broad-spectrum antibiotics IV Zosyn, magnesium and potassium protocol. Surgery consult recommended conservative management and no surgical intervention. She was initially kept NPO and slowly transitioned from clear liquid diet to GI soft diet. Over the Course of the stay her abdominal pain has significantly improved. Labs showed reticulocyte normal at 1.03, iron 37, TIBC 229, % saturation 16.1, ferritin 270 indicating anemia of chronic disease. Repeat CT abdomen/pelvis with contrast after 5 days revealed Acute sigmoid diverticulitis and Inflammatory changes that have somewhat subsided since the prior exam. Today the patient is seen and examined at the bedside. She states that she had experienced diarrhea yesterday after repeat CT which has subsided now. She denies fever, chills, chest pain, nausea, vomiting, shortness of breath, palpitations, abdominal pain, burning sensation when urinating. Vitals temperature 97.7, pulse rate ranging in 45, 50 and 60 s[asymptomatic, nonpathologic and likely vagally mediated], respiratory rate 18, blood pressure 116/62. Labs hemoglobin 11.1, WBC 5.4, BMP unremarkable. She is able to tolerate soft diet without any nausea/vomiting. Ambulating well without any dizziness. The patient showed steady clinical improvement, with resolution of abdominal symptoms, return of appetite. Clearance for discharge is obtained from surgical standpoint. She is being discharged today with prescription of amoxicillin clavulanate 875/125 mg p.o. b.i.d. for 10 days, 20 tablets, Pepcid 20 mg b.i.d. p.o. for 10 days, 20 tablets. Advised to follow up with PCP within 2-3 days, surgery consult 6 weeks for further assessment and colonoscopy. 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 antibiotics Patient will be recommended to follow up in six weeks with Dr. Hayes is office for potential colonoscopy Procedure(s): SERVICE 0600 REASON: diverticulitis ORDERING PHYSICIAN: BAILEY BULLOCK Jr. PROCEDURE: ABD PEL W - CT ABDOMEN/PELVIS W/CONTRAST Exam Type: CT ABDOMEN/PELVIS W/CONTRAST Clinical Information: diverticulitis Comparison: None Contrast: 100 cc's Isovue 370 IV, no complications or adverse reactions CT Dose Index (CTDI): 31.60 mGy Dose Length Product (DLP): 1740.80 total mGy-cm Findings: Right-sided nonobstructing renal calculi are seen. There is no hydronephrosis. No worrisome renal masses are seen. Left kidney unremarkable. The lung bases are clear. The stomach is unremarkable. It shows no wall thickening. No gross ulceration is seen. It is not overly distended. There are no surrounding inflammatory changes. No wall lesions are identified to suggest cancer. The spleen is unremarkable. It is not enlarged. The pancreas shows normal anatomy. It is not fatty replaced. It shows no lesions. The pancreatic duct is not dilated. The gallbladder is unremarkable. It shows no cholelithiasis. The gallbladder wall is normal in thickness. There is no pericholecystic fluid. The is no acute or chronic inflammation noted. The adrenal glands are unremarkable. There is no enlargement. No lesions are noted. The liver is unremarkable. It shows no focal masses. The appendix is unremarkable. It shows no evidence of inflammation. No appendicolith is seen. The small bowel is unremarkable. There is no evidence of dilatation to suggest obstruction. No evidence of adynamic ileus is seen. There is no small bowel wall thickening to suggest enteritis. The large bowel shows diverticulosis particularly involving the sigmoid colon. In addition, there are inflammatory changes of the sigmoid suggestive of acute diverticulitis. There is no evidence of bowel perforation. The colon is otherwise unremarkable. The urinary bladder is unremarkable. There is no wall thickening to suggest tumor or inflammation. There are no intraluminal calculi. There are no diverticula. There is no evidence of chronic bladder outlet obstruction. There is no evidence of urinary bladder distention to suggest urinary retention. The other pelvic structures are unremarkable. The bony and vascular structures are unremarkable for the patient's age. IMPRESSION: Acute sigmoid diverticulitis. Inflammatory changes have somewhat subsided since the prior exam. Right nonobstructing nephrolithiasis. SERVICE 1652 REASON: llq pain ORDERING PHYSICIAN: JENNY MONCADA MD PROCEDURE: ABD PEL W - CT ABDOMEN/PELVIS W/CONTRAST CT ABDOMEN/PELVIS W/CONTRAST CLINICAL HISTORY: llq pain COMPARISON: 11/02/2022 TECHNIQUE: Sequential axial images of abdomen and pelvis with 75 mL of Omnipaque 350 IV contrast with sagittal and coronal reconstructions. CT was performed with one or more of the following dose reduction techniques: automated exposure control, adjustment of the mA and/or kV according to patient size, or use of iterative reconstruction technique. FINDINGS: Lung bases clear. Liver and spleen are unremarkable. The gallbladder pancreas and adrenal glands left kidney and bladder are unremarkable. There is punctate nonobstructive renal calculi. The right ureter is within normal limits. Note is made of extensive inflammatory change in the pelvis around the sigmoid colon as well as multiple sigmoid colon diverticuli and small amount of free fluid sitting dependently in the pelvis. There is no identified bowel obstruction. There is no bulky abdominal or retroperitoneal lymphadenopathy. The bony structures demonstrate mild change of the spine. The ureters is unremarkable. IMPRESSION: Severe sigmoid diverticulitis. Multiple nonobstructive right renal calculus Assessment/Plan: ASSESSMENT: Severe sigmoid diverticulitis POA Leukocytosis, POA improving History of Left leg DVT on Xarelto POA History of diverticulitis POA Acute on chronic anemia POA History of Pulmonary embolism on Xarelto POA Morbid obesity POA PLAN: ADMISSION DATE : DISCHARGE DATE : 12/29/2024 DISPOSITION : Home CONDITION : Stable Bulb Grower(s) : Surgery consult FOLLOW UP APPOINTMENTS : Follow up with PCP within 2-3 days, follow up with surgery consult PROCEDURES : None IMAGING (s) : CT abdomen/pelvis on 12/23 and 12/28 MICROBIOLOGY : None ACTIVITY : ab sushma HOME MEDICATIONS : Continue NEW MEDICATIONS : Amoxicillin clavulanate 875/125 mg p.o. b.i.d. for 10 days, 20 tablets, Pepcid 20 mg p.o. b.i.d. for 10 days, 20 tablets TEACHING : The patient was instructed to present to the nearest Emergency Department or call 911 should their symptoms return or worsen. Discharge Instructions: Follow up with PCP within 2-3 days Follow up with surgery consult, Dr. Hayes, outpatient within 6 weeks for colonoscopy Follow up with PCP for further assessment of incidentally found multiple nonobstructive right renal calculus on CT abdomen/pelvis Medications Continue Augmentin 875/125 mg p.o. b.i.d. for 10 days. Take this with food to reduce GI upset Use stool softeners p.r.n. to avoid straining Use Pepcid 20 mg b.i.d. p.o. for 10 days Start with low fiber diet Stay well hydrated Avoid heavy lifting or straining Monitor for symptoms like fever greater than 100.4, severe or worsening abdominal pain, nausea/vomiting, blood in stool, inability to pass gas or have a bowel movement and seek immediate medical attention in such scenario Home Medications: Reported Medications [Psyllium Husk] No Conflict Check, 700 MG PO HSPRN 12/24/24 Topiramate (Topiramate) 50 Mg Tablet, 50 MG PO HS, TAB 12/24/24 Cetirizine HCl (Cetirizine HCl) 10 Mg Tablet, 1 TAB PO HS for allergy symptoms for 30 Days, #30 TAB 0 Refills 12/24/24 Rivaroxaban (Xarelto) 20 Mg Tablet, 20 MG PO HS, TAB 10/31/22 Discontinued Reported Medications Levocetirizine Dihydrochloride (Xyzal) 5 Mg Tablet, 5 MG PO HS, TAB 10/31/22 Discontinued Scripts Cephalexin Monohydrate (Keflex) 500 Mg Cap, 1 CAP PO BID for 10 Days, #20 CAP 0 Refills Prov:JENNY MONCADA MD 09/15/24 Tamsulosin HCl (Flomax) 0.4 Mg Cap.er.24h, 1 CAP PO DAILY for 7 Days, #7 CAP 0 Refills Prov:JENNY MONCADA MD 09/15/24 Ketorolac Tromethamine (Ketorolac Tromethamine) 10 Mg Tablet, 1 TAB PO Q6HPRN PRN for pain for 5 Days, #20 TAB 0 Refills Prov:JENNY MONCADA MD 09/15/24 Loperamide HCl (Imodium 2 mg Cap) 2 Mg Capsule, 2 MG PO TID PRN for DIARRHEA for 3 Days, #15 CAP Prov:JEAN-PIERRE LLANES NP 11/04/22 Amoxicillin/Potassium Clav (Amox Tr-K Clv 875-125 mg Tab) 1 Each Tablet, 1 EACH PO BID for 14 Days, #28 TAB Prov:JEAN-PIERRE LLANES NP 11/04/22 Acetaminophen with Codeine (Acetaminophen-Cod #3 Tablet) 1 Each Tablet, 1 TAB PO Q4H PRN for MODERATE PAIN (4-6) for 7 Days, #10 TAB Prov:JEAN-PIERRE LLANES NP 11/04/22 Time spent arranging discharge: 31-60 minutes ATTESTATION BY PHYSICIAN I have seen and examined the patient. I reviewed the documentation, medical decision making, and treatment plan as noted by the resident above. I agree with the findings and plan of care. Dong Braswell MD, PRIYANKA MD Dec 29, 2024 15:25
[2024-12-29 16:04] VITALS: BP 142/74; PULSE 57; RESP 18; TEMP 98
--- NOTE | 2025-01-01 17:49 | NUR ---
Transitional Phone Call Attempted to call twice, left message [phone] and no call back.
== END 2024-12-29 18:42 | disposition home or self-care (01) | DRG 391 ==
LOC: EDH 15:18 → EDHIP 19:39 → 3CH 21:58
PROVIDERS: ADMIT Internal Medicine Sleep Medicine; ATTEND Internal Medicine Sleep Medicine
DX: K57.32 Diverticulitis of large intestine without perforation or abscess without bleeding (principal); I26.99 Other pulmonary embolism without acute cor pulmonale; D63.8 Anemia in other chronic diseases classified elsewhere; E66.01 Morbid (severe) obesity due to excess calories; Z79.01 Long term (current) use of anticoagulants; Z86.711 Personal history of pulmonary embolism; Z86.718 Personal history of other venous thrombosis and embolism; Z68.31 Body mass index [BMI] 31.0-31.9, adult; Z82.49 Family history of ischemic heart disease and other diseases of the circulatory system; Z83.3 Family history of diabetes mellitus; Z98.891 History of uterine scar from previous surgery
CPT/HCPCS: 36415; 74177; 80048; 80053; 81001; 81025; 82607; 82728; 83690; 83735; 85025; 85027; 85610; 85730; 96361; 96365; 96375; 99285; G0378; J2270; J2405; J2470; J2543; J3475; J3480; J3490; J7030; Q9963; Q9967

== ENCOUNTER 2025-03-08 17:19 | Emergency (ER) | payer BC ==
[~2025-03-08] VITALS: Ht 162.6 cm; Wt 80.1 kg
[~2025-03-08 17:19] MED LIST changes: -ACET-2079 PO; -AMOX1TAB16 PO; +CEFD300C3 PO; -CEPH500B PO; +CETI10TA57 PO; -KETO10TA2 PO; -LEVO5TAB29 PO; -LOPE2CAP PO; -TAMS-55 PO; +TOPI-97 PO
--- NOTE | 2025-03-08 18:47 | EKG ---
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
[2025-03-08 18:53] LABS: IMMATURE GRANULOCYTE ABSOLUTE 0.01 K/uL (0-1); NUCLEATED RED BLOOD CELLS 0.0 % (0.0-0.19); PLATELET COUNT (AUTO) 327 K/uL (130-400); RED BLOOD CELL COUNT(AUTO) 3.44 MIL/uL (4.00-5.50); RED CELL DISTRIBUTION WIDTH 12.8 % (11.0-15.5); WHITE BLOOD COUNT (AUTO) 6.4 K/uL (4.8-10.8)
[2025-03-08 18:59] LABS: INR 1.03 (0.85-1.15)
[2025-03-08 19:07] LABS: CREATININE 0.9 mg/dL (0.5-1.0); GLOMERULAR FILTR. RATE CALC 77.0 mL/min (>90); GLUCOSE,RANDOM 88.0 mg/dL (70-105); SODIUM SERUM 143.0 mmol/L (136-145); UREA NITROGEN, BLOOD 18.0 mg/dL (7-18)
[2025-03-08 19:12] LABS: CREATINE KINASE, TOTAL 83.0 U/L (21-232)
--- NOTE | 2025-03-08 19:41 | HMCIMG ---
EXAMINATION: US for Deep Venous Thrombosis, bilateral Lower Extremity. CLINICAL HISTORY: Patient presents with left leg pain and history of prior left leg DVT. COMPARISON: None provided. TECHNIQUE: Real-time ultrasound scan of the veins of the bilateral lower extremity with color Doppler flow, spectral waveform analysis, and compression. FINDINGS: DEEP VEINS: The right lower extremity common femoral, superficial femoral, and popliteal veins are echolucent and compressible. The left superficial femoral vein (proximal, mid, and distal) and popliteal vein are negative for acute DVT. Synechiae are noted in the left superficial femoral and popliteal veins, suggestive of chronic post-thrombotic changes. Normal color Doppler flow is demonstrated throughout. The visualized calf veins appear patent. SOFT TISSUES: No popliteal fossa cyst or other abnormalities. IMPRESSION: No acute deep venous thrombosis in the bilateral lower extremities. Synechiae in the left superficial femoral and popliteal veins consistent with chronic post-thrombotic changes. /[place]
[2025-03-08] MEDS: HYDROcodone/APAP 5/325 1 TAB TABLET PO ONE (19:58)
--- NOTE | 2025-03-08 20:07 | HMCIMG ---
EXAM: CR Chest, 1 View. CLINICAL HISTORY: sob COMPARISON: None provided. FINDINGS: LUNGS: There is no mass, infiltrate, or acute pulmonary abnormality. PLEURAL SPACES: No pleural effusion or pneumothorax. MEDIASTINUM: Cardiac size and mediastinal contours within normal limits. BONES: No aggressive appearing osseous lesion seen. IMPRESSION: No acute cardiopulmonary pathology is evident. /[place]
--- NOTE | 2025-03-08 20:22 | ERN ---
ED Note History of Present Illness Stated Complaint: LEFT LEG EDEMA Chief Complaint: LOWER EXTREMITY EDEMA Time Seen by MD: 17:21 Time Seen by Midlevel: 17:21 Dictation: The patient is a 49-year-old female with a history of kidney stones, DVT/PE on Xarelto who presents to the emergency department with lower extremity swelling onset two days ago. Patient denies any trauma. Patient reports that she has been getting lower extremity swelling but reports that she elevates the legs and the swelling subsides. Patient however reports that today the swelling was worse and she started having pain on her left leg. Patient reports she was recently in the hospital for kidney stones and reports that her Xarelto was stopped for five days and she restarted it back on February 28. Patient had an IVP done on 02/20/2025. Patient denies any chest pain but reports some fatigue. Allergies: Coded Allergies: No Known Allergies (Verified Allergy, Unknown, 11/13/14) Home Meds Active Scripts Cefdinir (Cefdinir) 300 Mg Capsule, 1 CAP PO BID for 5 Days, #10 CAP 0 Refills Prov:VENKAT ROBLEDO MD 02/21/25 Reported Medications Rivaroxaban (Xarelto) 20 Mg Tablet, 1 TAB PO HS for 30 Days, #30 TAB 0 Refills with food 02/19/25 Cetirizine HCl (Cetirizine HCl) 10 Mg Tablet, 1 TAB PO HS for allergy symptoms f or 30 Days, #30 TAB 0 Refills 02/19/25 Topiramate (Topiramate) 50 Mg Tablet, 50 MG PO HS, TAB 02/19/25 Past Medical History Past Medical History: Diverticulitis, DVT, Other Additional Past Medical Hx: PE Surgical History: Other Surgical History Other: brain sx RN Note Reviewed/Agreed w/PFSH: Yes Review of System Dictation Constitutional: Negative for fever,chills, and weight loss Eyes: Negative for injury, pain,redness, and discharge ENT: Negative for injury,pain or swelling Cardiovascular: Negative for chest pain, palpitations, positive for lower extremity edema Respiratory: Negative for cough, and wheezing, positive for shortness of breath Abdomen/GI: Negative for abdominal pain, nausea, vomiting, diarrhea, and constipation Back: Negative for injury and pain : Negative for injury, bleeding and discharge MS/Extremity: Negative for injury and deformity Skin: Negative for rash, and discoloration Neuro: Negative for headache, weakness, numbness, tingling, and seizure Psych: Negative for suicide ideation, homicidal ideation, and hallucinations Initial Vital Sign VS Vital Signs Date Time Temp Pulse Resp B/P (MAP) Pulse Ox O2 Delivery O2 Flow Rate FiO2 03/08/25 17:20 98.2 82 18 134/72 98 Room Air 0 03/08/25 17:25 21 Physical Exam Dictation Vital Signs reviewed General Appearance: Alert, oriented x 3, no acute distress, well developed, nourished. Head and Face: non-traumatic. Eyes: PERRL, pink conjunctivas, eyelid no trauma, anterior chamber with arcus senilis. Ears: Pinnas intact and no signs of trauma or erythema ear canals clear and no discharge TM no erythema Nose: No discharge, no bleeding. Oropharynx: Mouth normal, tongue pink. pharynx clear,no erythema, tonsils no exudates, no abscesses noted, mucous membrane moist Neck: Supple, non-tender, no thyromegaly, no masses, no JVD, no bruits Breast:Deferred Chest:No tenderness, no crepitus, no paradoxical movement, no retractions Lungs:Clear, well-ventilated, symmetric, no rales, no wheezing, no rhonchi, no stridor, good breath sounds bilaterally Heart: Regular rate, regular rhythm, no murmur, no gallops Vascular: Nonpitting edema to bilateral lower extremities Abdomen: Soft, positive bowel sounds, nondistended, no guarding, nontender, no rebound, no masses no hepatomegaly, no splenomegaly, no Wynn's sign, no hernias. Rectal: Deferred Genital: Deferred Neurological: Normal speech, motor function intact, sensory function intact Musculoskeletal: Neck nontender, full range of motion, back nontender, full range of motion, Extremities: nontender, full range of motion Skin: Color pink, dry, no turgor, no rash, no lacerations, no abrasions, no contusions. Lymphatic: Deferred Results (Laboratory/Radiology) Laboratory/Radiology Laboratory Tests Test 03/08/25 18:38 White Blood Count 6.4 K/uL (4.8-10.8) Red Blood Count 3.44 MIL/uL (4.00-5.50) L Hemoglobin 10.5 g/dL (12.0-16.0) L Hematocrit 32.0 % (36-48) L Mean Corpuscular Volume 93.0 fL (79-99) Mean Corpuscular Hemoglobin 30.5 pg (27.0-33.0) Mean Corpuscular Hemoglobin Concent 32.8 g/dL (32.0-36.0) Red Cell Distribution Width 12.8 % (11.0-15.5) Platelet Count 327 K/uL (130-400) Mean Platelet Volume 9.4 fL (7.5-10.5) Immature Granulocyte % (Auto) 0.2 % (0-1) Neutrophils (%) (Auto) 50.2 % (40.0-77.0) Lymphocytes (%) (Auto) 35.6 % (21.0-51.0) Monocytes (%) (Auto) 9.5 % (3.0-13.0) Eosinophils (%) (Auto) 3.7 % (0.0-8.0) Basophils (%) (Auto) 0.8 % (0.0-5.0) Neutrophils # (Auto) 3.2 K/uL (1.8-7.7) Lymphocytes # (Auto) 2.3 K/uL (1.0-4.8) Monocytes # (Auto) 0.6 K/uL (0.1-1.0) Eosinophils # (Auto) 0.24 K/uL (0.00-0.70) Basophils # (Auto) 0.05 K/uL (0.00-0.20) Absolute Immature Granulocyte (auto 0.01 K/uL (0-1) Nucleated Red Blood Cells 0.0 % (0.0-0.19) Prothrombin Time 10.9 SEC (9.6-11.6) Prothromb Time International Ratio 1.03 (0.85-1.15) Activated Partial Thromboplast Time 28.4 SEC (26.3-35.5) Sodium Level 143 mmol/L (136-145) Potassium Level 3.9 mmol/L (3.5-5.1) Chloride Level 108 mmol/L (101-111) Carbon Dioxide Level 30 mmol/L (21-32) Blood Urea Nitrogen 18 mg/dL (7-18) Creatinine 0.9 mg/dL (0.5-1.0) Glomerular Filtration Rate Calc 77 mL/min (>90) Random Glucose 88 mg/dL (70-105) Total Calcium 8.6 mg/dL (8.5-10.1) Magnesium Level 2.10 mg/dL (1.80-2.40) Total Creatine Kinase 83 U/L (21-232) Troponin I High Sensitivity < 4 ng/L (4-50) L B-Type Natriuretic Peptide 63 pg/mL (0-100) Serum Test, Qualitative NEGATIVE (NEGATIVE) PATIENT: CELI RINALDI MR#: [id number] : 1975 SEX: F AGE: 49 LOCATION: [facility] ORDER 01 STATUS: [facility] REPORT#: [id number] SERVICE 1800 REASON: swelling pain ORDERING PHYSICIAN: ERIC EASTMAN PROCEDURE: VENOUS YASMEEN - US VENOUS DOPPLER BILATERAL EXAMINATION: US for Deep Venous Thrombosis, bilateral Lower Extremity. CLINICAL HISTORY: Patient presents with left leg pain and history of prior left leg DVT. COMPARISON: None provided. TECHNIQUE: Real-time ultrasound scan of the veins of the bilateral lower extremity with color Doppler flow, spectral waveform analysis, and compression. FINDINGS: DEEP VEINS: The right lower extremity common femoral, superficial femoral, and popliteal veins are echolucent and compressible. The left superficial femoral vein (proximal, mid, and distal) and popliteal vein are negative for acute DVT. Synechiae are noted in the left superficial femoral and popliteal veins, suggestive of chronic post-thrombotic changes. Normal color Doppler flow is demonstrated throughout. The visualized calf veins appear patent. SOFT TISSUES: No popliteal fossa cyst or other abnormalities. IMPRESSION: No acute deep venous thrombosis in the bilateral lower extremities. Synechiae in the left superficial femoral and popliteal veins consistent with chronic post-thrombotic changes. /[place] REASON: sob ORDERING PHYSICIAN: ERIC EASTMAN PROCEDURE: CXR1VW - CHEST 1VW EXAM: CR Chest, 1 View. CLINICAL HISTORY: sob COMPARISON: None provided. FINDINGS: LUNGS: There is no mass, infiltrate, or acute pulmonary abnormality. PLEURAL SPACES: No pleural effusion or pneumothorax. MEDIASTINUM: Cardiac size and mediastinal contours within normal limits. BONES: No aggressive appearing osseous lesion seen. IMPRESSION: No acute cardiopulmonary pathology is evident. /[facility] Labs Reviewed?: Yes EKG: (+) rhythm (Sinus rhythm) EKG Comment: Date:03/08/2025 Time:1843 Ventricular rate:64 LA interval:153 QRS duration:88 QT/QTc:411/424 EKG interpretation: Sinus rhythm Reviewed by ED Attending no STEMI ED Course ED Course Orders Procedure Category Date Status Time Cbc With Differential LAB 03/08/25 Complete 18:00 Chest 1vw RAD 03/08/25 Resulted 18:00 12 Lead Ekg Tracing- EKG 03/08/25 Complete Technical 18:00 Magnesium LAB 03/08/25 Complete 18:00 Creatine Kinase, Total LAB 03/08/25 Complete 18:00 Troponin I High LAB 03/08/25 Complete Sensitivity 18:00 Basic Metabolic Panel LAB 03/08/25 Complete 18:00 Pt And Ptt LAB 03/08/25 Complete 18:00 B-Type Natriuretic LAB 03/08/25 Complete Peptide 18:00 Us Venous Doppler US 03/08/25 Resulted Bilateral 18:00 Testing, LAB 03/08/25 Complete Serum Hcg 18:18 Hydrocodone/Apap PHA 03/08/25 Complete 5/325 ([place] 5/325mg) 20:00 Current Medications Medications (Trade) Dose Ordered Sig/Percy Route PRN Reason Start Time Stop Time Status Last Admin Dose Admin Acetaminophen/ Hydrocodone Bitart (NORco 5/325MG) 1 tab ONCE ONCE PO 03/08/25 20:00 03/08/25 20:01 DC 03/08/25 19:58 Vital Signs Date Time Temp Pulse Resp B/P (MAP) Pulse Ox O2 Delivery O2 Flow Rate FiO2 03/08/25 19:21 98.2 63 18 131/72 100 Room Air* 0 21 03/08/25 17:25 98.2 82 18 134/77 98 Room Air* 0 21 03/08/25 17:20 98.2 82 18 134/72 98 Room Air 0 Medical Decision Making MDM The patient is a 49-year-old female with a history of kidney stones, DVT/PE on Xarelto who presents to the emergency department with lower extremity swelling onset two days ago. Patient denies any trauma. Patient reports that she has been getting lower extremity swelling but reports that she elevates the legs and the swelling subsides. Patient however reports that today the swelling was worse and she started having pain on her left leg. Patient reports she was recently in the hospital for kidney stones and reports that her Xarelto was stopped for five days and she restarted it back on February 28. Patient had an IVP done on 02/20/2025. Patient denies any chest pain but reports some fatigue. CBC showed no leukocytosis, mild normocytic anemia, chemistry showed no electrolyte imbalance, negative troponin, venous Doppler showed no acute DVT. X-ray showed no acute pathology. On physical exam patient is in no acute distress, nonlabored respirations, clear lung sounds, mild bilateral lower leg swelling but no erythema. Patient with no tachycardia, no hypoxemia. Wells score for PE low risk. Patient instructed to follow up with PCP and continue on her Xarelto. Patient instructed to return to ER if symptoms worsen. Patient agree with discharge. Differential diagnosis: DVT, pneumonia, pneumothorax, ACS, electrolyte imbalance, dehydration Need for hospitalization: Patient does not meet criteria for hospitalization. There are no social concerns with this patient. DX & DISP Disposition: Discharge Departure Impression: Primary Impression: Bilateral lower extremity edema Additional Impression: Anemia Condition: Stable Additional Instructions: Your ultrasound did not show any evidence of acute deep vein thrombosis. Your labs were unremarkable. Your x-ray was normal. Continue to elevate your legs to help with the edema. Please follow up with your primary doctor in 1-2 days. If anything worsens please return to ER. FOLLOW-UP WITH PRIMARY CARE PROVIDER IN 1 TO 2 DAYS. TAKE MEDICATIONS DIRECTED HERE IN THE EMERGENCY ROOM. OKAY TO CONTINUE HOME MEDICATIONS UNLESS OTHERWISE DISCUSSED DURING YOUR VISIT IN THE EMERGENCY ROOM TODAY. RETURN TO YOUR NEAREST EMERGENCY ROOM IF SYMPTOMS WORSEN OR IF THERE IS NO IMPROVEMENT. CALL 911 IF YOU NEED IMMEDIATE ASSISTANCE. TAKE TYLENOL [id number] NEEDED AND IF NO CONTRAINDICATIONS ARE PRESENT. INCREASE ORAL HYDRATION. A WOUND CULTURE OR URINE CULTURE WAS ORDERED HERE IN THE EMERGENCY ROOM DEPARTMENT PLEASE FOLLOW-UP WITH PRIMARY CARE PROVIDER AND ADVISE THEM TO GET REPEAT PORTS FROM OUR FACILITY. IF YOU HAD ANY TATIANA WRAP/SPLINTS THAT WERE APPLIED HERE, PLEASE DO NOT REMOVE THEM UNTIL YOU SEE YOUR PRIMARY CARE OR SPECIALTY. Referrals: [facility] (PCP) Time of Disposition: 20:21 I have reviewed the case, and I agree with, Diagnosis and Plan ERIC EASTMAN [facility] Mar 08, 2025 20:22
[2025-03-08 20:27] VITALS: BP 126/80; PULSE 61; RESP 18; TEMP 98.4; O2SAT 100
== END 2025-03-08 20:30 | disposition home or self-care (01) ==
LOC: EDH 17:19
DX: R60.0 Localized edema (principal); D64.9 Anemia, unspecified; Z86.718 Personal history of other venous thrombosis and embolism; Z79.899 Other long term (current) drug therapy; Z79.01 Long term (current) use of anticoagulants
CPT/HCPCS: 36415; 71045; 80048; 82550; 83735; 83880; 84484; 84703; 85025; 85610; 85730; 93005; 93970; 99284

== ENCOUNTER → 2025-03-30 | Outpatient (CLI) | payer BC ==
--- NOTE | 2025-03-31 11:24 | HMCIMG ---
INDICATION: CALCULUS OF KIDNEY. COMPARISON: None. TECHNIQUE: After obtaining the patient's consent, CT images were created with oral contrast and and with non-ionic intravenous contrast material. Numerous low-radiation dose strategies were employed including AEC (Automatic Exposure Control) and individualized BMI-based low dose scan protocols. The exam was performed on a CT scanner that is compliant with the NEMA XR-29 Smart Dose Standard. DICOM Radiation Dose Structured Reporting capability and Dose Check Standard are also features of this scanner. RADIATION DOSE ESTIMATE: CTDIvol (mGy): 7.30 \ DLP (mGy-cm): 391.60 FINDINGS: LOWER THORAX:Lung bases are clear. Normal cardiac size without pericardial effusion. LIVER: No focal hepatic abnormality. BILIARY: No calcified gallstones No intra or extrahepatic biliary ductal dilatation. PANCREAS: Normal. No lesion, fluid collection, ductal dilatation, or acute inflammation. SPLEEN: Normal. No enlargement or focal lesion. STOMACH/DUODENUM: Unremarkable. ADRENALS: Normal. No mass or enlargement. KIDNEYS: The left kidney upper pole there is a nonobstructing calculus measuring 4 mm. There is suggestion of a small nonobstructing calculus also in upper pole of the left kidney. The right kidney has no obstructive calculi identified. Otherwise both kidneys have no mass or hydronephrosis. BOWEL/MESENTERY: Normal. No visible mass, obstruction, or bowel wall thickening. There are scattered diverticulosis with no evidence of diverticulitis. AORTA/VASCULAR: No aneurysm. No atherosclerotic disease. PERITONEUM/RETROPERITONEUM: Normal. No mass, ascites or free air. LYMPH NODES: No pathologically enlarged lymph nodes. URINARY BLADDER: Normal. No visible focal wall thickening, lesion, or calculus. PELVIC ORGANS: The uterus is mildly deviating towards the left side. BONES: No acute osseous abnormality. ABDOMINAL WALL/SOFT TISSUES: Normal. No mass or hernia. IMPRESSION: 2 nonobstructing calculi seen in the upper pole of the left kidney. There is no evidence of an obstructive uropathy. . Occasional diverticulosis most in descending and sigmoid colon with no evidence of diverticulitis.
== END | disposition home or self-care (01) ==
LOC: RAH 13:25
PROVIDERS: ATTEND Urology
DX: N20.0 Calculus of kidney (principal); K57.30 Diverticulosis of large intestine without perforation or abscess without bleeding
CPT/HCPCS: 74176

== ENCOUNTER → 2025-06-18 | Outpatient (CLI) | payer BC | END | disposition home or self-care (01) | LOC: RAH 11:14 | PROVIDERS: ATTEND Nurse Practitioner Adult Health | DX: Z12.31 Encounter for screening mammogram for malignant neoplasm of breast (principal) | CPT/HCPCS: 77063; 77067 ==